=== PATIENT | male | born 1960 | race Caucasian/White ===

== ENCOUNTER 2016-08-03 06:04 | Inpatient (IN) | payer OTHER ==
[~2016-08-03] VITALS: Ht 188 cm; Wt 113.4 kg
[~2016-08-03 06:04] MED LIST: ALBUTEROL0.09 MG/A2 INH; ASPIRIN EC81 M1 PO; ATORVASTATIN CA10 M1 PO; CRESTOR40 M2 PO; CRESTOR40 MG PO; LEVEMIR FL100 UNIT/1 SC; LEVEMIR100 UNIT/1 SC; LEVOTHYROXINE175 MCG PO; LEVOXYL75 MCG PO; METFORMIN HCL1000 M1 PO; METFORMIN HCL500 M3 PO; NORCO 325 MG-51 TAB PO; NOVOLOG100 UNIT/2 SC; PROAIR HFA0.09 MG/Ac INH; Q-TUSSIN DM SY473 ML PO; TESTOSTERO200 MG/1 M IM; TRAMADOL HCL50 MG PO; TRESIBA FL200 UNIT/1 SC; TRULICITY0.75 MG/01 SC; VITAMIN D1000 UNIT PO; ZITHROMAX Z-PA250 M1 PO
--- NOTE | 2016-08-03 06:19 | NUR ---
c/o difficulty breathing,chest pain,cotton mouth elevated bs decreased appetite,fever and chills
--- NOTE | 2016-08-03 06:28 | NUR ---
PT FINGER-STICK= 146
--- NOTE | 2016-08-03 06:58 | ED GENERAL ADULT ---
History of Present Illness General Chief Complaint: General Adult Stated Complaint: MULTI COMPLAINTS Source: patient Exam Limitations: no limitations Vital Signs & Intake/Output Vital Signs & Intake/Output Vital Signs Date Time Temp Pulse Resp B/P B/P Pulse O2 O2 Flow FiO2 Mean Ox Delivery Rate 08/03 1145 99.6 109 18 117/72 93 Room Air 08/03 0620 96.5 130 18 138/73 95 Room Air Allergies Coded Allergies: NO KNOWN ALLERGIES (08/12/13) Reconcile Medications Albuterol Sulfate (Proair Hfa) 0.09 MG/Actuation KENDALL 0.09 MG INH PRN PRN ASTHMA (Reported) Aspirin (Ecotrin*) 81 MG TABLET.DR 1 TAB PO DAILY HEART/BLOOD (Reported) Cholecalciferol (Vitamin D3) (Vitamin D) (Unknown Strength) TABLET (Unknown Dose) PO BID SUPPLEMENT (Reported) Dulaglutide (Trulicity) (Unknown Strength) PEN.INJCTR (Unknown Dose) SC QSAT DM (Reported) Guaifenesin/Dextromethorphan (Q-Tussin Dm Syrup) 100 MG-10 MG/5 ML SYRUP 10 ML PO BID COUGH AND CONGESTION (Reported) Insulin Detemir (Levemir Flextouch) 100 UNIT/ML (3 ML) INSULN.PEN 40 UNITS SC QAM DM (Reported) Levothyroxine Sodium 175 MCG TABLET 1 TAB PO DAILY THYROID (Reported) Metformin HCl 1,000 MG TABLET 1 TAB PO 0800,1700 Diabetes Rosuvastatin Calcium (Crestor) 40 MG TABLET 1 TAB PO DAILY CHOLESTEROL ( Reported) Testosterone Cypionate (Unknown Strength) VIAL (Unknown Dose) IM Q2W HRT ( Reported) Triage Note: c/o difficulty breathing,chest pain,cotton mouth elevated bs decreased appetite,fever and chills Triage Nurses Notes Reviewed? yes Onset: Abrupt Duration: hour(s): Timing: recent history HPI: 08/03/16 7 am This is a 56-year-old man who presents to the emergency department complaining of fever or chills, cough that is nonproductive, sweats over the past 12 hours The onset of the symptoms were abrupt, the duration has been the past 12 hours, the severity is significant; as his symptoms required him to come to the emergency department for care. He has a past medical history of Klinefelter syndrome, osteoporosis, and diabetes. (WALLACE CRUZ DO) Past History Travel History Traveled to [place] past 21 day No Medical History Any Pertinent Medical History? 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 No (WALLACE CRUZ DO) Review of Systems Review of Systems Constitutional: Reports: chills, fever. EENTM: Reports: no symptoms, throat pain. Respiratory: Reports: cough. Denies: short of breath. Cardiovascular: Denies: chest pain. GI: Reports: nausea, vomiting. Denies: abdominal pain. Genitourinary: Reports: no symptoms. Musculoskeletal: Reports: no symptoms. Skin: Reports: no symptoms. Neurological/Psychological: Reports: no symptoms. Hematologic/Endocrine: Denies: bleeding. Immunologic/Allergic: Reports: no symptoms, see HPI. (WALLACE CRUZ DO) Physical Exam Physical Exam General Appearance: alert, awake, anxious, moderate distress Head: atraumatic, normal appearance Eyes: Bilateral: normal appearance, PERRL, EOMI. Ears, Nose, Throat: normal pharynx, normal ENT inspection Neck: normal inspection, supple, full range of motion Respiratory: chest non-tender, no respiratory distress, rhonchi Cardiovascular: tachycardia Peripheral Pulses: 4+ radial (R), 4+ radial (L) Gastrointestinal: soft, non-tender Back: normal range of motion Extremities: pedal edema Neurologic/Psych: no motor/sensory deficits, awake, alert, oriented x 3 Skin: intact, normal color, diaphoresis Core Measures ACS in differential dx? No CVA/TIA Diagnosis: No Severe Sepsis Present: No Septic Shock Present: No (WALLACE CRUZ DO) Progress Differential Diagnoses I considered the following diagnoses in my evaluation of the patient: [Sepsis, pneumonia bronchitis, influenza, viral syndrome] Plan of Care: Orders Procedure Date/time Status LACTIC ACID 08/03 1512 Active Admit to inpatient 08/03 1303 Active Admit to inpatient 08/03 1247 Active Patient Data 08/03 1220 Active HIGH SENSITIVITY CRP 08/03 1214 Active WESTERGREN SED RATE 08/03 1214 Active Add-on Test (ER Only) 08/03 1213 Active LACTIC ACID 08/03 1212 Active URINALYSIS 08/03 1211 Complete Add-on Test (ER Only) 08/03 121 Active THYROID STIMULATING HORMONE 08/03 0705 Active LIPASE 08/03 0705 Active RAPID VIRAL INFLUENZA A 08/03 07 Complete BLOOD CULTURE 08/03 07 Active COMPREHENSIVE METABOLIC PANEL 08/03 07 Active CBC WITHOUT DIFFERENTIAL 08/03 07 Complete EKG 08/03 0632 Active Current Medications Sig/Hedy Start time Last Medication Dose Stop Time Status Admin Sodium Chloride 1,000 ML BOLUS ONE 08/03 1215 AC (Normal Saline 0.9%) 08/03 1314 Laboratory Tests 08/03/16 1235: Lactic Acid Pending 08/03/16 1235: C-React Prot High Sens Pending, ESR Westergren Pending 08/03/16 1231: Urinalysis MOD H, Urine Color ARIK, Urine Clarity HAZY H, Urine pH 6.0, Ur Specific [place] 1.025, Urine Protein 100 H, Urine Ketones TRACE H, Urine Nitrite NEG, Urine Bilirubin POS@ICTO H, Urine Urobilinogen 1.0, Ur Leukocyte Esterase NEG, Ur Microscopic SEDIMENT EXAMINED, Urine RBC RARE, Urine WBC RARE, Ur Epithelial Cells FEW, Granular Casts 1-3 H, Urine Hemoglobin SMALL H, Urine Glucose NEG 08/03/16 0705: Anion Gap 13, Estimated GFR 57 L, BUN/Creatinine Ratio 17.7, Glucose 145 H, Calcium 8.4, Total Bilirubin 1.5 H, AST 105 H, ALT 91 H, Alkaline Phosphatase 70, Total Protein 6.7, Albumin 3.8, Globulin 2.9, Albumin/Globulin Ratio 1.3, Lipase 74, TSH Pending, CBC w Diff MAN DIFF ORDERED, RBC 5.75, MCV 77.4 L, MCH 25.6 L, RDW 17.1 H, MPV 11.2 H, Gran % 65.4, Lymphocytes % 27.6, Monocytes % 6.5, Eosinophils % 0.1, Basophils % 0.4, Absolute Granulocytes 1.7, Segmented Neutrophils 32 L, Band Neutrophils 32 H, Absolute Lymphocytes 0.7 L, Lymphocytes 31, Monocytes 5, Absolute Monocytes 0.2, Absolute Eosinophils 0, Absolute Basophils 0, Platelet Estimate , Poikilocytosis 1+, Anisocytosis 1+, Ovalocytes , PUBS MCHC 33.1 Microbiology 08/03 1002 NASOPHARYN: Influenza Virus A & B Rapid Smear - COMP 08/03 0710 BLOOD: Blood Culture - RECD 08/03 07 BLOOD: Blood Culture - RECD Initial ED EKG: none (WALLACE CRUZ DO) Diagnostic Imaging: Discussed w/RAD: Radiology Read, CT Scan. Radiology Impression: PATIENT: EDU MERCHANT PRESENT AGE: 56 PATIENT ACCOUNT NO: [id number] : 56 LOCATION: [facility] ORDERING PHYSICIAN: WALLACE ATKINS MD SERVICE DATE: 08/03/16 EXAM TYPE: CAT - CT ABD & PELVIS W/O IV CONTRAS EXAMINATION: CT ABDOMEN AND PELVIS WITHOUT CONTRAST CLINICAL INFORMATION: Chills, bandemia and elevated liver enzymes. COMPARISON: CT abdomen and pelvis from 01/27/2010 TECHNIQUE: Multidetector volumetric imaging was performed from the superior aspect of the liver through the pubic symphysis. Sagittal and coronal reformatted images were obtained on the technologist's workstation. DLP: 1337 mGy-cm FINDINGS: LUNG BASES: The visualized lung bases are unremarkable. LIVER, GALLBLADDER, AND BILIARY TREE: Liver has an attenuation of approximately 40 Hounsfield units (borderline steatosis). The right hepatic lobe is approximately 19 cm in length and the left hepatic lobe is elongated, extending into the left upper quadrant and contacting the spleen. No focal hepatic lesion or intrahepatic bile duct dilatation. Gallbladder is surgically absent. PANCREAS: Unremarkable. SPLEEN: The prominent spleen measures 16.3 cm AP dimension. No focal splenic lesion. ADRENAL GLANDS: Unremarkable. KIDNEYS AND URETERS: Kidneys are normal in size. No nephrolithiasis, hydroureteronephrosis or perinephric fluid collection. BLADDER: Unremarkable. GASTROINTESTINAL TRACT: Bowel loops are normal in caliber. Appendix is normal. No evidence of acute inflammation or obstruction along the gastrointestinal tract. ABDOMINAL WALL: Obese body habitus. Minimal protrusion of fat into the umbilicus. No significant findings within the abdominal wall. LYMPH NODES: No pathologic sized lymph nodes within the abdomen or pelvis. VASCULAR: Mild atherosclerotic calcification of the abdominal aorta without aneurysm. No retroperitoneal mass or hematoma. PELVIC VISCERA: Prostate gland and seminal vesicles are grossly unremarkable. No pelvic free fluid. A few phleboliths are seen in the lower pelvis. OSSEOUS STRUCTURES: No suspicious osseous lesions. IMPRESSION: 1. No acute imaging abnormalities within the abdomen or pelvis. 2. Mild hepatosplenomegaly is observed in this obese patient. There are no focal hepatic or splenic lesions on this noncontrast exam. Liver has an attenuation of approximally 40 Hounsfield units (i.e., borderline steatosis). 3. Status post cholecystectomy. DICTATED BY: ANAY ARELLANO MD DATE /TIME DICTATED:08/03/161134 CASE LINER:JUAN DATE/TIME TRANSCRIBED: 08/03/161134 CONFIDENTIAL, DO NOT COPY WITHOUT APPROPRIATE AUTHORIZATION. < Electronically signed in Other Vendor System> SIGNED BY: ANAY ARELLANO MD 08/03/16 1145 CXR Impression: PATIENT: EDU MERCHANT PRESENT AGE: 56 PATIENT ACCOUNT NO: [id number] : 56 LOCATION: [facility] ORDERING PHYSICIAN: WALLACE ATKINS MD SERVICE DATE: 08/03/16 EXAM TYPE: RAD - XRY-PORTABLE CHEST XRAY EXAMINATION: XR PORTABLE CHEST CLINICAL INFORMATION: Cough and chills. Evaluate for pneumonia. COMPARISON: 02/21/2016 TECHNIQUE: Portable AP view of the chest was obtained. FINDINGS: Lungs are well expanded and clear. The trachea is midline position. Cardiac silhouette is normal in size. The mediastinal and hilar contours are normal. There is an old, healed fracture of the right posterolateral eighth rib. IMPRESSION: No evidence of pneumonia. DICTATED BY: ANAY ARELLANO MD DATE/TIME DICTATED:08/03/161107 CASE LINER:JUAN DATE/TIME TRANSCRIBED:08/03/161107 CONFIDENTIAL, DO NOT COPY WITHOUT APPROPRIATE AUTHORIZATION. 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 08/03/2016 12:15:45 PM patient's case discussed with Dr. Ivan and additional studies added at his request. The patient has no clinical focus of infection at this time so I do not believe he is septic. However he does meet criteria for systemic inflammatory response. Patient will be admitted. (MILLY AL,WALLACE Rodriguez) Departure Departure Disposition: STILL A PATIENT Condition: Stable Referrals: JOSE AGRAWAL MD (PCP/Family) Departure Forms: Customer Survey General Discharge Information (WALLACE CRUZ DO) Departure Clinical Impression Primary Impression: Systemic inflammatory response syndrome Secondary Impressions: Hepatomegaly Leukopenia Qualifiers: Leukopenia type: other Qualified Code: D72.818 - Other decreased white blood cell count Thrombocytopenia Total bilirubin, elevated Admission Note Spoke With: LYNN AL,ALYSSA Amor Documentation of Exam: Documentation of any treatments & extenuating circumstances including Concerns Regarding Discharge (functional status, medication knowledge or non-compliance, living conditions, etc.) that warrant an admission rather than observation: Patient has leukopenia, thrombocytopenia and hepatomegaly along with a systemic inflammatory response syndrome. The etiology of this patient's symptoms is unclear at this point. His leukopenia places him at risk of overwhelming infection and sepsis. His thrombocytopenia places him at elevated risk of spontaneous bleeding. Given the systemic inflammatory response syndrome, an occult infectious process or autoimmune disorder should be investigated. Hematology oncology consultation should be considered. Patient's white blood cell count and platelet count should be monitored and treated accordingly. Blood cultures should be followed and treated as well. Given the multitude of the patient's medical problems and his history of hypothyroidism and Klinefelter 's disease, I feel he will require a multiple day hospitalization. (MILLY AL,WALLACE Rodriguez) Critical Care Note Critical Care Note Critical Care Time: non-applicable (WALLACE CRUZ DO)
[2016-08-03 07:33] LABS: ABSOLUTE BASOPHIL COUNT 0 /CUMM (0.0-0.2); ABSOLUTE EOSINOPHIL COUNT 0 /CUMM (0.0-0.7); ABSOLUTE GRANULOCYTE CT 1.7 /CUMM (1.4-6.5); ABSOLUTE LYMPH COUNT 0.7 /CUMM (1.2-3.4); ABSOLUTE MONOCYTE COUNT 0.2 /CUMM (0.10-0.60); HEMATOCRIT 44.5 % (42-52); MEAN CORPUSCULAR HGB 25.6 PG (27.0-31.0)
[2016-08-03 07:36] LABS: BASOPHIL % 0.4 % (0.0-2.0); EOSINOPHIL % 0.1 % (0-5); GRANULOCYTE % 65.4 % (42.2-75.2); MEAN CORPUSCULAR HGB CONC 33.1 G/DL (33.0-37.0); MEAN CORPUSCULAR VOLUME 77.4 FL (80.0-94.0); MEAN PLATELET VOLUME 11.2 FL (7.4-10.4); RBC DISTRIBUTION WIDTH 17.1 % (11.5-14.5); RED BLOOD CELL CT 5.75 /CUMM (4.70-6.10); WHITE BLOOD CELL COUNT 2.7 /CUMM (4.8-10.8)
[2016-08-03 07:51] LABS: PLATELET COUNT 28 /CUMM (130-400)
--- NOTE | 2016-08-03 07:51 | NUR ---
CRITICAL TEST RESULTS [id number] EDU MERCHANT 56 M TESTS AND RESULTS: PLTS 28 Results received and read back by: MORGAN FRANCOIS Results received date and time: 08/03/16 0751 The following provider was notified of the results, and read the results back: DR ATKINS Notified date and time: 08/03/16 at 0751
--- NOTE | 2016-08-03 10:06 | NUR ---
FLU SWAB OBTAINED AND SENT TO LAB
--- NOTE | 2016-08-03 10:40 | NUR ---
DR ATKINS IN TO [facility] PT.
--- NOTE | 2016-08-03 11:13 | RADIOLOGY REPORT ---
EXAMINATION: XR PORTABLE CHEST CLINICAL INFORMATION: Cough and chills. Evaluate for pneumonia. COMPARISON: 02/21/2016 TECHNIQUE: Portable AP view of the chest was obtained. FINDINGS: Lungs are well expanded and clear. The trachea is midline position. Cardiac silhouette is normal in size. The mediastinal and hilar contours are normal. There is an old, healed fracture of the right posterolateral eighth rib. IMPRESSION: No evidence of pneumonia.
--- NOTE | 2016-08-03 11:45 | CT SCAN REPORT ---
EXAMINATION: CT ABDOMEN AND PELVIS WITHOUT CONTRAST CLINICAL INFORMATION: Chills, bandemia and elevated liver enzymes. COMPARISON: CT abdomen and pelvis from 01/27/2010 TECHNIQUE: Multidetector volumetric imaging was performed from the superior aspect of the liver through the pubic symphysis. Sagittal and coronal reformatted images were obtained on the technologist's workstation. DLP: 1337 mGy-cm FINDINGS: LUNG BASES: The visualized lung bases are unremarkable. LIVER, GALLBLADDER, AND BILIARY TREE: Liver has an attenuation of approximately 40 Hounsfield units (borderline steatosis). The right hepatic lobe is approximately 19 cm in length and the left hepatic lobe is elongated, extending into the left upper quadrant and contacting the spleen. No focal hepatic lesion or intrahepatic bile duct dilatation. Gallbladder is surgically absent. PANCREAS: Unremarkable. SPLEEN: The prominent spleen measures 16.3 cm AP dimension. No focal splenic lesion. ADRENAL GLANDS: Unremarkable. KIDNEYS AND URETERS: Kidneys are normal in size. No nephrolithiasis, hydroureteronephrosis or perinephric fluid collection. BLADDER: Unremarkable. GASTROINTESTINAL TRACT: Bowel loops are normal in caliber. Appendix is normal. No evidence of acute inflammation or obstruction along the gastrointestinal tract. ABDOMINAL WALL: Obese body habitus. Minimal protrusion of fat into the umbilicus. No significant findings within the abdominal wall. LYMPH NODES: No pathologic sized lymph nodes within the abdomen or pelvis. VASCULAR: Mild atherosclerotic calcification of the abdominal aorta without aneurysm. No retroperitoneal mass or hematoma. PELVIC VISCERA: Prostate gland and seminal vesicles are grossly unremarkable. No pelvic free fluid. A few phleboliths are seen in the lower pelvis. OSSEOUS STRUCTURES: No suspicious osseous lesions. IMPRESSION: 1. No acute imaging abnormalities within the abdomen or pelvis. 2. Mild hepatosplenomegaly is observed in this obese patient. There are no focal hepatic or splenic lesions on this noncontrast exam. Liver has an attenuation of approximally 40 Hounsfield units (i.e., borderline steatosis). 3. Status post cholecystectomy.
--- NOTE | 2016-08-03 13:12 | History & Physical ---
See Addendum General Information and HPI MD Statement: I have seen and personally examined EDU MERCHANT and documented this H&P. The patient is a 56 year old M who presented with a patient stated chief complaint of []. History of Present Illness: Edu is a 48-year-old man with medical history significant for hypothyroidism, Klinefelter's syndrome syndrome and type 2 diabetes who reports feeling "sick" for approximately 1 week with complaints of nausea vomiting (nonbloody nonbilious) and one episode of diarrhea that was also nonbloody or unusually foul-smelling. He reports no sick contacts no travel history or camping history. He also began experiencing subjective chills and fevers at night along with hot flashes. He also endorses recent new symptom of right buttock tremor though denies any history of diabetic neuropathy. He denies myalgias or arthralgias no rashes risk sexual behaviors and/or multiple sexual partners IV drug abuse any history of malignancy chemotherapy or any other autoimmune problems. He denies any other symptoms after review in detail-exceptions noted above. Allergies/Medications Allergies: Coded Allergies: NO KNOWN ALLERGIES (08/12/13) Home Med list Aspirin (Ecotrin*) 81 MG TABLET.DR 1 TAB PO DAILY HEART/BLOOD (Reported) Cholecalciferol (Vitamin D3) (Vitamin D) (Unknown Strength) TABLET (Unknown Dose) PO BID SUPPLEMENT (Reported) Dulaglutide (Trulicity) (Unknown Strength) PEN.INJCTR (Unknown Dose) SC QSAT DM (Reported) Insulin Detemir (Levemir Flextouch) 100 UNIT/ML (3 ML) INSULN.PEN 6 UNITS SC QAM DM (Reported) Levothyroxine Sodium 175 MCG TABLET 1 TAB PO DAILY THYROID (Reported) Metformin HCl 1,000 MG TABLET 1 TAB PO 0800,1700 Diabetes Rosuvastatin Calcium (Crestor) 40 MG TABLET 1 TAB PO DAILY CHOLESTEROL ( Reported) Testosterone Cypionate (Unknown Strength) VIAL (Unknown Dose) IM Q2W HRT ( Reported) Compliance With Home Meds: GOOD Past History Travel History Traveled to [place] past 21 day No Medical History Neurological: NONE EENT: NONE Cardiovascular: NONE Respiratory: NONE Gastrointestinal: NONE Hepatic: NONE Renal: NONE Musculoskeletal: KLINEFELTER'S SYNDROME OA Psychiatric: NONE Endocrine: diabetes, hypothyroidism Blood Disorders: NONE Cancer(s): NONE MOTEL MAID/Reproductive: NONE History of MRSA: No History of VRE: No History of CDIFF: No Surgical History Surgical History: cholecystectomy, B/L KNEE Past Family/Social History Family History Relations & Conditions if any BROTHER FHx: lung cancer MOTHER FHx: lung cancer, Onset: 30-40. FATHER FH: tuberculosis Relation not specified for: FH: breast cancer Psychosocial History Where do you live? Home Who Do You Live With? spouse Services at Home: None Primary Language: Ivorian Smoking Status: Never Smoked ETOH Use: occasional use Illicit Drug Use: denies illicit drug use Functional Ability ADLs Independent: dressing, eating, toileting, bathing. Ambulation: independent IADLs Independent: shopping, housework, finances, food prep, telephone, transportation , medication admin. Sexual History Sexually Active Yes # of partners 1 Sexual Orientation Heterosexual Use of Protection No Employment History Employment Employed Review of Systems Review of Systems Constitutional: Reports: chills, diaphoresis, fever, weakness. All Other Systems: Reviewed and Negative Exam & Diagnostic Data Last 24 Hrs of Vital Signs/I&O Vital Signs Date Time Temp Pulse Resp B/P B/P Pulse O2 O2 Flow FiO2 Mean Ox Delivery Rate 08/03 1145 99.6 109 18 117/72 93 Room Air 08/03 0620 96.5 130 18 138/73 95 Room Air Intake & Output 08/03 1600 08/03 0800 08/03 0000 Intake Total 0 Output Total Balance 0 Intake, Oral 0 Patient 250 lb Weight Physical Exam General Appearance Alert, Oriented X3, Cooperative, No Acute Distress, obese Skin No Rashes, No Breakdown, No Significant Lesion Skin Temp/Moisture Exam: Warm/Dry Sepsis Skin Exam (color): Normal for Ethnicity HEENT Atraumatic, PERRLA, EOMI, Mucous Membr. moist/pink, edentulous Neck Supple, No JVD, No thryomegaly, +2 Carotid Pulse wo Bruit, No LAD Lymphatic Axillary nl, Cervical nl Cardiovascular Regular Rate, Normal S1, Normal S2, No Murmurs, Gallops, Rubs Lungs Clear to Auscultation, Normal Air Movement Abdomen Normal Bowel Sounds, Soft, No Tenderness, No Hepatospenomegaly, No Masses, obese abdomen Neurological Normal Speech, Strength at 5/5 X4 Ext, Normal Tone, Sensation Intact, Cranial Nerves 3-12 NL, Reflexes 2+ Extremities No Clubbing, No Cyanosis, No Edema, Normal Pulses, No Tenderness/ Swelling Vascular Normal Pulses, Pulses Symmetrical Sepsis Peripheral Pulse Location: Dorsalis Pedis Sepsis Peripheral Pulse Exam: Normal Sepsis Cap Refill Exam: <2 Sec Diagnostic Data EKG Results sinus tachycardia CXR Results FINDINGS: Lungs are well expanded and clear. The trachea is midline position. Cardiac silhouette is normal in size. The mediastinal and hilar contours are normal. There is an old, healed fracture of the right posterolateral eighth rib. IMPRESSION: No evidence of pneumonia. Other Results CT ABDOMEN AND PELVIS WITHOUT CONTRAST CLINICAL INFORMATION: Chills, bandemia and elevated liver enzymes. COMPARISON: CT abdomen and pelvis from 01/27/2010 TECHNIQUE: Multidetector volumetric imaging was performed from the superior aspect of the liver through the pubic symphysis. Sagittal and coronal reformatted images were obtained on the technologist's workstation. DLP: 1337 mGy-cm FINDINGS: LUNG BASES: The visualized lung bases are unremarkable. LIVER, GALLBLADDER, AND BILIARY TREE: Liver has an attenuation of approximately 40 Hounsfield units (borderline steatosis). The right hepatic lobe is approximately 19 cm in length and the left hepatic lobe is elongated, extending into the left upper quadrant and contacting the spleen. No focal hepatic lesion or intrahepatic bile duct dilatation. Gallbladder is surgically absent. PANCREAS: Unremarkable. SPLEEN: The prominent spleen measures 16.3 cm AP dimension. No focal splenic lesion. ADRENAL GLANDS: Unremarkable. KIDNEYS AND URETERS: Kidneys are normal in size. No nephrolithiasis, hydroureteronephrosis or perinephric fluid collection. BLADDER: Unremarkable. GASTROINTESTINAL TRACT: Bowel loops are normal in caliber. Appendix is normal. No evidence of acute inflammation or obstruction along the gastrointestinal tract. ABDOMINAL WALL: Obese body habitus. Minimal protrusion of fat into the umbilicus. No significant findings within the abdominal wall. LYMPH NODES: No pathologic sized lymph nodes within the abdomen or pelvis. VASCULAR: Mild atherosclerotic calcification of the abdominal aorta without aneurysm. No retroperitoneal mass or hematoma. PELVIC VISCERA: Prostate gland and seminal vesicles are grossly unremarkable. No pelvic free fluid. A few phleboliths are seen in the lower pelvis. OSSEOUS STRUCTURES: No suspicious osseous lesions. IMPRESSION: 1. No acute imaging abnormalities within the abdomen or pelvis. 2. Mild hepatosplenomegaly is observed in this obese patient. There are no focal hepatic or splenic lesions on this noncontrast exam. Liver has an attenuation of approximally 40 Hounsfield units (i.e., borderline steatosis). 3. Status post cholecystectomy. Assessment/Plan Assessment: Edu is a 48-year-old man with a medical history of hypothyroidism, type 2 diabetes, remote history of DVT not on anticoagulation, obesity, hospitalization at [facility] 12/11/2015 for hyperglycemic hyperosmolar state, electrolyte derangements (hyponatremia, hyperkalemia)and significant hypertriglyceridemia who now presents with general malaise/subjective fevers and chills, significant nonproductive cough. His recent illness, as described by the patient, appears to be a viral gastroenteritis. However significant lab abnormalities are worrisome, he is leukopenic with a WBC count of 2700, borderline neutropenia with an absolute neutrophil count of 1728. He does have significant thrombocytopenia with platelets of 20,000. Significant bandemia 32%. Nonspecific transaminitis with AST greater than ALT. As of yet we do not have a clear source of infection, imaging including chest x-ray and CAT scan of the abdomen and pelvis have not yielded an obvious source of infection. Thus far he has remained afebrile, but his ability to mount a pyrexia response is questionable. The patient himself denies any other medical history, however reviewing his medical records it appears that he had underwent flow cytometry at [facility] in 2013 - which the patient is unaware of. Flow cytometry did not detect any blasts or evidence of monoclonal B-cell lymphoproliferative disease. He has never had a bone marrow bx. Also of note, he notes his father had TB exposure and he had a negative Quantiferon test in October 2013. This patient meets SIRS criteria. Differential should include transient myelosuppression 2/2 viral illness, myeloproliferative neoplasm e.g. MDS etc., low grade DIC, tick borne illnesses e.g. anaplasmosis. MPNs occur more often in people with Down syndrome, Ataxia telangiectasia, Li-Fraumeni syndrome, Klinefelter syndrome, and Familial Platelet Disorder syndrome et al. Hematology consultation would be prudent, along with a review of records from PCP and [facility]. - Problems - Leukopenia Thrombocytopenia Transaminitis Type 2 Diabetes - Plan - Obtain Type & screen PT/INR, D-Dimer,FSP,Fibrinogen level ESR, CRP Peripheral blood smear HIV ab Hepatitis panel Lyme,Babesia,Ehrlichia serologies Repeat CBC @ 1900h Repeat CBC, CMP @ 0600h Await Blood Cx x 2 Urine Cx Sputum culture Anticipate pooled platelets txn, if plt<10 Await Hematology consultation Consider ID consultation re:?tick borne illness, ?TB Neutropenic precautions for now until ANC is trending up Cont supportive tx - antiemetics, IVFs DVT ppx ALPs FULL code As Ranked By This Provider Problem List: 1. Thrombocytopenia 2. Leukopenia Qualifiers Leukopenia type: other Qualified Code: D72.818 - Other decreased white blood cell count Core Measures/Miscellaneous Acute Coronary Syndrome ACS Diagnosis: No Cerebrovascular Accident CVA/TIA Diagnosis: No Congestive Heart Failure CHF Diagnosis: No Venous Thromboembolism VTE Risk Factors: Age > 40 [facility] d/t: No contraindications No VTE Pharm Prophylaxis d/t: No contraindications VTE Diagnosis: No VTE Type: NONE VTE Confirmed by (Test): NONE Severe Sepsis Severe Sepsis Present: No Septic Shock Septic Shock Present: No Miscellaneous Documentation Attending Case Discussed With: ALYSSA BAILEY MD Primary Care Physician: JOSE AGRAWAL MD Patient sees these Specialists n/a Level of Patient Care: General Medicine n/a Level of Patient Care: General Medicine
--- NOTE | 2016-08-03 13:54 | NUR ---
PT TO ROOM 212 BED 1
--- NOTE | 2016-08-03 14:32 | NUR ---
REPORT TO JAYA LEAL.
--- NOTE | 2016-08-03 14:57 | NUR ---
AWAITING TO HEAR IF PT WILL HAVE CTA PRIOR TO FLOOR TRANSPORT.
--- NOTE | 2016-08-03 15:10 | NUR ---
LABS DRAWN, SENT TO LAB.
[2016-08-03 15:17] LABS: PT 11.5 SEC (9.4-12.5); PTT 35 SEC (25-37)
--- NOTE | 2016-08-03 15:35 | NUR ---
PER RESIDENT, ADDITIONAL LABWORK REQUIRED AT THIS TIME.
--- NOTE | 2016-08-03 15:45 | NUR ---
PER LAB, THE STAT LABWORK STILL REMAINS UNRECEIVED. THE FSP TUBE IS A SPECIAL TUBE FROM THE LAB THAT IS REQUIRED TO WARM TO ROOM TEMP X15 MINUTES PRIOR TO BEING DRAWN.
--- NOTE | 2016-08-03 16:34 | NUR ---
CONTINUE TO AWAIT LAB RESULTS.
--- NOTE | 2016-08-03 16:49 | Admission Certification ---
Admission Certification Certification Statement - As attending physician, I certify that at the time of - admission, based on clinical presentation, severity of - symptoms, need for further diagnostic testing and - therapeutic interventions, and risk of adverse outcomes - without in-hospital treatment, in my clinical assessment, - this patient requires an acute hospital stay for a minimum - of two nights or longer. I have also considered psychsocial - factors such as support system, advanced age, financial - issues, cognitive issues, and failed out-patient treatments, - past re-admission history, safety of patient, and lack of - compliance as applicable. Specific rationale supporting this admission is: Fever and chills with leukopenia and thrombocytopenia, elevated LFTs.
--- NOTE | 2016-08-03 16:50 | NUR ---
DEVI AND FAMILY AWARE OF DELAY AT THIS TIME. CONTINUE TO AWAIT HOUSE STAFF PERMISSION TO ALLOW PATIENT TO BE MOVED TO GENERAL MEDICINE FLOOR AT THIS TIME.
--- NOTE | 2016-08-03 17:02 | NUR ---
TRANSPORT CALLED AT THIS TIME.
[2016-08-03 17:08] LABS: ABSOLUTE BASOPHIL COUNT 0 /CUMM (0.0-0.2); ABSOLUTE EOSINOPHIL COUNT 0 /CUMM (0.0-0.7); ABSOLUTE GRANULOCYTE CT 1.7 /CUMM (1.4-6.5); ABSOLUTE LYMPH COUNT 0.9 /CUMM (1.2-3.4); ABSOLUTE MONOCYTE COUNT 0.2 /CUMM (0.10-0.60); BASOPHIL % 0.1 % (0.0-2.0); EOSINOPHIL % 0 % (0-5); MEAN CORPUSCULAR HGB 25.7 PG (27.0-31.0); MEAN PLATELET VOLUME 11.3 FL (7.4-10.4); RBC DISTRIBUTION WIDTH 17.4 % (11.5-14.5); RED BLOOD CELL CT 5.05 /CUMM (4.70-6.10); WHITE BLOOD CELL COUNT 2.8 /CUMM (4.8-10.8)
--- NOTE | 2016-08-03 17:11 | PN- Att Addend ---
Attending MD Review Statement Attending Statement Attending MD Statement: examined this patient, discuss w/resident/PA/CITRIX ARCHITECT, agreed w/resident/PA/CITRIX ARCHITECT, discussed with family, reviewed EMR data (avail), discussed w/ nursing Attending Assessment/Plan: Laboratory Tests 08/03/16 1559: Sodium Pending, Potassium Pending, Chloride Pending, Carbon Dioxide Pending, Anion Gap Pending, BUN Pending, Creatinine Pending, BUN/Creatinine Ratio Pending , Fibrin Degrad Products Pending, CBC w Diff Pending, WBC Pending, RBC Pending, Hgb Pending, Hct Pending, MCV Pending, MCH Pending, RDW Pending, Plt Count Pending, MPV Pending, PUBS MCHC Pending 08/03/16 1508: Lactic Acid 1.0 08/03/16 1235: Lactic Acid 1.0 08/03/16 1235: Direct Bilirubin 0.5 H, C-Reactive Prot, Quant > 9.0 H, C-React Prot High Sens > 15.0 H, ESR Westergren 5 08/03/16 1231: Urinalysis MOD H, Urine Color ARIK, Urine Clarity HAZY H, Urine pH 6.0, Ur Specific Paxton 1.025, Urine Protein 100 H, Urine Ketones TRACE H, Urine Nitrite NEG, Urine Bilirubin POS@ICTO H, Urine Urobilinogen 1.0, Ur Leukocyte Esterase NEG, Ur Microscopic SEDIMENT EXAMINED, Urine RBC RARE, Urine WBC RARE, Ur Epithelial Cells FEW, Granular Casts 1-3 H, Urine Hemoglobin SMALL H, Urine Glucose NEG 08/03/16 0705: Anion Gap 13, Estimated GFR 57 L, BUN/Creatinine Ratio 17.7, Glucose 145 H, Calcium 8.4, Total Bilirubin 1.5 H, AST 105 H, ALT 91 H, Alkaline Phosphatase 70, Lactate Dehydrogenase 2073 H, Total Protein 6.7, Albumin 3.8, Globulin 2.9, Albumin/Globulin Ratio 1.3, Lipase 74, TSH 0.259 L, CBC w Diff MAN DIFF ORDERED , RBC 5.75, MCV 77.4 L, MCH 25.6 L, RDW 17.1 H, MPV 11.2 H, Gran % 65.4, Lymphocytes % 27.6, Monocytes % 6.5, Eosinophils % 0.1, Basophils % 0.4, Absolute Granulocytes 1.7, Segmented Neutrophils 32 L, Band Neutrophils 32 H, Absolute Lymphocytes 0.7 L, Lymphocytes 31, Monocytes 5, Absolute Monocytes 0.2 , Absolute Eosinophils 0, Absolute Basophils 0, Platelet Estimate , Poikilocytosis 1+, Anisocytosis 1+, Ovalocytes , PUBS MCHC 33.1, Retic Count 0.77, Hepatitis A IgM Ab NONREACTIVE, Hep Bs Antigen NONREACTIVE, Hep B Core IgM Ab Conf NONREACTIVE, Hepatitis C Antibody NONREACTIVE, HIV 1&2 Ab Western Blot NONREACTIVE 08/03/16 0704: PT 11.5, INR 1.10, APTT 35, Fibrinogen Activity 309, D-Dimer > 5250 H, Lyme Disease Antibody Pending Microbiology 08/03 1002 NASOPHARYN: Influenza Virus A & B Rapid Smear - COMP Vital Signs Date Time Temp Pulse Resp B/P B/P Pulse O2 O2 Flow FiO2 Mean Ox Delivery Rate 08/03 1429 97.8 100 18 115/68 94 08/03 1145 99.6 109 18 117/72 93 Room Air 08/03 0620 96.5 130 18 138/73 95 Room Air 56-year-old male with past medical history of Klinefelter syndrome, diabetes mellitus, hypothyroidism, remote history of clot in the leg. Patient was admitted with chief complaints of fever and chills along with the diaphoresis for the last 12 hours prior to admission. Patient also has been having symptoms of nausea and vomiting for about 1 week with left lower quadrant abdominal pain. Patient denies any sick contacts, no recent camping or exposure to ticks. Patient has history of cholecystectomy in the past but denies any history of appendicitis. Patient also had 1 episode of loose stools. Denies any recent change in the medications. Patient also complained of some tremors in in his right lower extremity which has been on and off for the last 2 weeks. In the emergency room patient was found to have a white count of 2.7 with bands of 32% and platelets of 28,000. Also his creatinine was higher than baseline at 1.3. Patient was given IV fluids in the ER about 2 L of normal saline. We have started him on normal saline also. His lactic acid is normal. His LDH is high as well as his CRP but his ESR is normal. His repeat creatinine after fluid is 1.4. We're waiting for his repeat CBCs. Acute leukopenia with bandemia and thrombocytopenia-unclear etiology as of now. Given his high LDH and mildly elevated LFTs and thrombocytopenia with leukopenia and CT abdomen showing mild hepatosplenomegaly we would consider tickborne illnesses like babesiosis and early ehrlichiosis. We reviewed the peripheral blood smear with the lab and they do not see any evidence of tickborne illness on the peripheral smear. We will send for serology and will give him azithromycin as well as atovaquone empirically and will get hematology consult. His d-dimer can be nonspecific. He does have had remote history of leg clot but currently his wells score is very low and also has no leg swelling which puts him at very low probability for DVT and PE. Given his high creatinine and very low platelets his risk of bleeding outweighs the benefit of empirically treating him with heparin drip. We will give him more hydration and repeat his labs in the morning and if his creatinine is better may consider doing a CT chest to look for other etiologies.
[2016-08-03 17:13] LABS: HEMATOCRIT 39.4 % (42-52)
[2016-08-03 17:14] LABS: PLATELET COUNT 31 /CUMM (130-400)
--- NOTE | 2016-08-03 17:14 | NUR ---
CRITICAL TEST RESULTS [id number] EDU MERCHANT 56 M TESTS AND RESULTS: FSP >40 Results received and read back by: ITZ DIAZ Results received date and time: 08/03/161713 The following provider was notified of the results, and read the results back: [id number] Notified date and time: 08/03/16 at HOUSE STAFF (BRYANT ALEXANDER) PAGED
--- NOTE | 2016-08-03 17:24 | NUR ---
NO CT-A NOTED TO BE ORDERED AT THIS TIME.
[2016-08-03 18:06] VITALS: BP 110/82
[2016-08-03 23:19] VITALS: BP 100/60
[2016-08-04 07:46] VITALS: BP 108/64
--- NOTE | 2016-08-04 08:16 | PN- Housestaff ---
BRYANT ALEXANDER MD 08/04/16 0815: Subjective Follow-up For: Pancytopenia Possible tick borne illness Subjective: Patient seen and examined. He is seen sitting upright in bed resting comfortably. He appears to be in no acute distress. His [id number] is at bedside present for the interview. He reports sleeping well last night, but admits to intermitted chills and a persistent new nonproductive cough. Otherwise he states that he feels "a bit better" than when he came in and has no new subjective complaints. Additionally he denies any blurred/double vision, lightheadedness/dizziness, headache, fever, chills, chest pain, palpitations, shortness of breath, nausea, vomiting, diarrhea. No overnight events reported. Review of Systems Constitutional: Reports: see HPI. Objective Last 24 Hrs of Vital Signs/I&O Vital Signs Date Time Temp Pulse Resp B/P B/P Pulse O2 O2 Flow FiO2 Mean Ox Delivery Rate 08/04 0800 93 Nasal 2.0L Cannula 08/04 0746 98.3 88 20 108/64 91 Nasal Cannula 08/04 0000 96 Nasal 2.0L Cannula 08/03 2319 98.7 86 20 100/60 95 Nasal 2.0L Cannula 08/03 1813 Nasal 2.0L Cannula 08/03 1806 98.6 99 19 110/82 97 Room Air 08/03 1730 97.5 97 18 133/70 95 Nasal 2.0L Cannula 08/03 1429 97.8 100 18 115/68 94 Intake & Output 08/04 1600 08/04 0800 08/04 0000 Intake Total 600 225 Output Total 450 250 Balance 150 -25 Intake, IV 600 225 Output, Urine 450 250 Patient 113.398 kg Weight Weight Reported by Patient Measurement Method Physical Exam General Appearance: Alert, Oriented X3, Cooperative, No Acute Distress Other Physical Findings: General - well developed, well nourished obese middle aged man in no acute distress HEENT - NCAT, PERRL, EOMI, anicteric sclera, nasal cannula in place CVS - S1, S2 w/o m/g/r Resp - CTA bilatearlly, audible nonproductive cough with deep inspiration GI - soft, obese, mild LUQ/LLQ tenderness without guarding/rigidity, nondistended, bowel sounds intact Neuro - Awake and alert, CN II - XII grossly intact Ext - normal pulses, no cyanosis/clubbing/edema Current Medications: Current Medications Sig/Hedy Start time Last Medication Dose Route Stop Time Status Admin Atovaquone 750 MG BID 08/03 220 AC PO Azithromycin 250 MG DAILY 08/04 1000 AC 08/04 PO 0954 Azithromycin 0 .STK-MED ONE 08/03 1736 DC PO Azithromycin 500 MG ONCE ONE 08/03 1730 DC 08/03 PO 08/03 1731 1740 Cyanocobalamin 1,000 MCG ONCE ONE 08/04 1245 DC IM 08/04 1246 Dextrose/Sodium 1,000 ML Q13H 08/03 1330 DC 08/04 [place] 0210 Guaifenesin 10 ML Q6P PRN 08/03 2200 AC 08/04 PO 0614 Insulin Aspart 0 TIDAC 08/04 1200 AC SC Insulin Detemir 3 UNITS BID 08/03 2200 AC 08/04 SC 0955 Insulin Human Regular 1 UNITS .STK-MED ONE 08/04 0036 DC IV 08/04 0037 Insulin Human Regular 0 Q6 08/03 1800 DC 08/04 SC 0614 Morphine Sulfate 2 MG Q4P PRN 08/03 1330 AC IV Ondansetron HCl 4 MG Q6P PRN 08/03 1330 AC IV Sodium Chloride 1,000 ML BOLUS ONE 08/03 1215 DC 08/03 IV 08/03 1314 1230 Last 24 Hrs of Lab/Ismael Results Last 24 Hrs of Labs/Mics: Laboratory Tests 08/04/16 0640: Anion Gap 10, Estimated GFR 52 L, BUN/Creatinine Ratio 17.1, Ferritin 6090.0 H , Total Bilirubin 1.1, Direct Bilirubin 0.5 H, AST 67 H, ALT 72, Alkaline Phosphatase 50, Total Protein 5.6 L, Albumin 2.9 L, Vitamin B12 216 L, CBC w Diff NO MAN DIFF REQ, RBC 4.84, MCV 77.8 L, MCH 25.7 L, RDW 17.5 H, MPV 13.3 H, Gran % 51.7, Lymphocytes % 40.6, Monocytes % 7.2, Eosinophils % 0.1, Basophils % 0.4, Absolute Granulocytes 1.6, Absolute Lymphocytes 1.3, Absolute Monocytes 0.2, Absolute Eosinophils 0, Absolute Basophils 0, PUBS MCHC 33.1 08/03/16 1900: CBC w Diff Cancelled, WBC Cancelled, RBC Cancelled, Hgb Cancelled, Hct Cancelled , MCV Cancelled, MCH Cancelled, RDW Cancelled, Plt Count Cancelled, MPV Cancelled, PUBS MCHC Cancelled 08/03/16 1559: Anion Gap 10, Estimated GFR 52 L, BUN/Creatinine Ratio 20.0, Fibrin Degrad Products > 40 ug/ml H, CBC w Diff NO MAN DIFF REQ, RBC 5.05, MCV 78.0 L, MCH 25.7 L, RDW 17.4 H, MPV 11.3 H, Gran % 61.0, Lymphocytes % 32.7, Monocytes % 6.2, Eosinophils % 0, Basophils % 0.1, Absolute Granulocytes 1.7, Absolute Lymphocytes 0.9 L, Absolute Monocytes 0.2, Absolute Eosinophils 0, Absolute Basophils 0, PUBS MCHC 33.0 08/03/16 1508: Lactic Acid 1.0, Lyme Disease Antibody Pending Microbiology 08/04 1351 LOWER RESP: Respiratory Culture - COLB 08/04 1351 LOWER RESP: Gram Stain - COLB Assessment/Plan Assessment: 56 year old man with past medical history of Klinefelters, hypothyroidism, and diabetes mellitus seen for evaluation of "feeling sick" with nausea/vomiting/ diarrhea and associated fever/chills for one week. Hospital Day 2 Patient reports improvement of his nausea/vomiting/diarrhea and subjective fever while on azithromycin and atovaquone. Infectious disease consult was placed and it was recommneded to keep patient on this regimen as his labs have demonstrated some improvement, he will be considered to be transitioned to oral doxycycline therapy pending results of anaplasma/babesia/lyme serologies. Heme/onc product/industry consultant commented that patients clinical picture most likely does not represent that of a microangiopathic hemolytic process and that there was a low suspicion for a primary hematologic malignancy but MDS is still a consideration. Patient is to be continued on the current regimen and monitored for interval improvement. Pancytopenia/Transaminitis/Acute Kidney Injury, Possible Tick borne illness -General Medicine -Azithromycin 250mg PO Daily -Atovaquone 750mg PO BID -Guaifenesin 10mL PO Q6H PRN Cough -Zofran 4mg IV Q6H PRN Nausea -Infectious Disease Consult -Heme/Onc Consult -Daily CBC/BEP Elevated LDH/D-Dimer Low modified well's score for PE. Patient does have have new nonproductive cough. -Consider CTA when creatinine improves -F/U Bilateral LE US B-12 Deficiency -B12 1,000mcg IM ONCE -B12 1,000mcg PO Daily Diabetes Mellitus -Accuchecks TIDAC/HS -Hold oral hypoglycemics -Novolog SSI -Levemir 3U SC BID -Diabetic Diet Pain plan-Acetaminophen/Oxycodone Diet-Diabetic Diet DVT PPx-ALPS Code Status-FULL CODE Problem List: 1. Thrombocytopenia Pain Ratin Pain Location: None Pain Goal: Pain 4 or less Pain Plan: See assessment Tomorrow's Labs & Rationales: CBC-pancytopenia BEP-acute kidney injury ALYSSA BAILEY 08/04/16 1725: Attending MD Review Statement Attending Statement Attending MD Statement: examined this patient, discuss w/resident/PA/REGISTERED DIETETIC TECHNICIAN, agreed w/resident/PA/REGISTERED DIETETIC TECHNICIAN, reviewed EMR data (avail), discussed with nursing Attending Assessment/Plan: Agree with the assessment plan of the resident. Patient's white count and platelets are stable and slightly better. Discussed with the patient the care plan. We will continue with current treatment plan. Appreciated hematology consult. We will follow-up on the tick panel and decide further course based on that.
[2016-08-04 09:10] LABS: ABSOLUTE BASOPHIL COUNT 0 /CUMM (0.0-0.2); ABSOLUTE EOSINOPHIL COUNT 0 /CUMM (0.0-0.7); ABSOLUTE GRANULOCYTE CT 1.6 /CUMM (1.4-6.5); ABSOLUTE LYMPH COUNT 1.3 /CUMM (1.2-3.4); ABSOLUTE MONOCYTE COUNT 0.2 /CUMM (0.10-0.60); BASOPHIL % 0.4 % (0.0-2.0); EOSINOPHIL % 0.1 % (0-5); RBC DISTRIBUTION WIDTH 17.5 % (11.5-14.5)
[2016-08-04 09:22] LABS: GRANULOCYTE % 51.7 % (42.2-75.2); HEMATOCRIT 37.7 % (42-52); MEAN CORPUSCULAR HGB 25.7 PG (27.0-31.0); MEAN CORPUSCULAR HGB CONC 33.1 G/DL (33.0-37.0); MEAN CORPUSCULAR VOLUME 77.8 FL (80.0-94.0); MEAN PLATELET VOLUME 13.3 FL (7.4-10.4); RED BLOOD CELL CT 4.84 /CUMM (4.70-6.10); WHITE BLOOD CELL COUNT 3.1 /CUMM (4.8-10.8)
[2016-08-04 10:04] LABS: PLATELET COUNT 36 /CUMM (130-400)
--- NOTE | 2016-08-04 12:36 | Cons- Hematology ---
General Information and HPI Consulting Request Date of Consult: 08/04/16 Requested By: LYNN AL,ALYSSA Amor Reason for Consult: Leukopenia, thrombocytopenia Source of Information: patient, old records Exam Limitations: no limitations History of Present Illness: Mr. Ridley is a 56 year old man who presented to the [facility] ER with complaints of nausea and vomiting with left lower abdominal pain for the last several days. His history is somewhat unclear but it appears he is also reporting diarrhea. It seems this is difficult to determine because he already has frequent loose stools per day. He reports hot and cold sweats and believes he had a fever but did not take his temporature. His cough has been productive of white sputum. He denies any dyspnea or chest pain. No headache, visual changes, dizziness or other focal neurologic symptoms. No rash, myalgia or arthralgia. Denies any abnormal bleeding or increased bruising. Appetite has been normal. He reports steady weight loss since being diagnosed with diabetes, over 100 lbs overall. No recent sudden weight loss. He current feels better and denies any nausea. Left lower abdominal pain has improved. Still noting loose stool. Allergies/Medications Allergies: Coded Allergies: NO KNOWN ALLERGIES (08/12/13) Home Med List: Aspirin (Ecotrin*) 81 MG TABLET.DR 1 TAB PO DAILY HEART/BLOOD (Reported) Cholecalciferol (Vitamin D3) (Vitamin D) (Unknown Strength) TABLET (Unknown Dose) PO BID SUPPLEMENT (Reported) Dulaglutide (Trulicity) (Unknown Strength) PEN.INJCTR (Unknown Dose) SC QSAT DM (Reported) Insulin Detemir (Levemir Flextouch) 100 UNIT/ML (3 ML) INSULN.PEN 6 UNITS SC QAM DM (Reported) Levothyroxine Sodium 175 MCG TABLET 1 TAB PO DAILY THYROID (Reported) Metformin HCl 1,000 MG TABLET 1 TAB PO 0800,1700 Diabetes Rosuvastatin Calcium (Crestor) 40 MG TABLET 1 TAB PO DAILY CHOLESTEROL ( Reported) Testosterone Cypionate (Unknown Strength) VIAL (Unknown Dose) IM Q2W HRT ( Reported) Current Medications: Current Medications Sig/Hedy Start time Last Medication Dose Route Stop Time Status Admin Atovaquone 750 MG BID 08/03 2200 AC PO Azithromycin 250 MG DAILY 08/04 1000 AC 08/04 PO 0954 Azithromycin 0 .STK-MED ONE 08/03 1736 DC PO Azithromycin 500 MG ONCE ONE 08/03 1730 DC 08/03 PO 08/03 1731 1740 Dextrose/Sodium 1,000 ML Q13H 08/03 1330 DC 08/04 Chloride IV 0210 Guaifenesin 10 ML Q6P PRN 08/03 2200 AC 08/04 PO 0614 Insulin Aspart 0 TIDAC 08/04 1200 AC SC Insulin Detemir 3 UNITS BID 08/03 2200 AC 08/04 SC 0955 Insulin Human Regular 1 UNITS .STK-MED ONE 08/04 0036 DC IV 08/04 0037 Insulin Human Regular 0 Q6 08/03 1800 DC 08/04 SC 0614 Morphine Sulfate 2 MG Q4P PRN 08/03 1330 AC IV Ondansetron HCl 4 MG Q6P PRN 08/03 1330 AC IV Sodium Chloride 1,000 ML BOLUS ONE 08/03 1215 DC 08/03 IV 08/03 1314 1230 Review of Systems Review of Systems Constitutional: Reports: chills, malaise. EENTM: Reports: no symptoms. Cardiovascular: Reports: no symptoms. Respiratory: Reports: cough, sputum production. GI: Reports: abdominal pain, diarrhea, nausea, vomiting. Denies: bloody stool. Genitourinary: Reports: no symptoms. Musculoskeletal: Reports: no symptoms. Skin: Reports: no symptoms. Neurological/Psychological: Reports: no symptoms. Hematologic/Endocrine: Reports: no symptoms. Immunologic/Allergic: Reports: no symptoms. 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 FATHER FH: tuberculosis Relation not specified for: FH: breast cancer Psychosocial History Where Do You Live? Home Who Do You Live With? spouse Services at Home: None Primary Language: Nepali Smoking Status: Never Smoked ETOH Use: occasional use Illicit Drug Use: denies illicit drug use Functional Ability ADLs Independent: dressing, eating, toileting, bathing. Ambulation: independent IADLs Independent: shopping, housework, finances, food prep, telephone, transportation , medication admin. Employment History Employment: Employed Exam & Diagnostic Data Vital Signs and I&O Vital Signs Date Time Temp Pulse Resp B/P B/P Pulse O2 O2 Flow FiO2 Mean Ox Delivery Rate 08/04 0800 93 Nasal 2.0L Cannula 08/04 0746 98.3 88 20 108/64 91 Nasal Cannula 08/04 0000 96 Nasal 2.0L Cannula 08/03 2319 98.7 86 20 100/60 95 Nasal 2.0L Cannula 08/03 1813 Nasal 2.0L Cannula 08/03 1806 98.6 99 19 110/82 97 Room Air 08/03 1730 97.5 97 18 133/70 95 Nasal 2.0L Cannula 08/03 1429 97.8 100 18 115/68 94 Intake & Output 08/04 1600 08/04 0800 08/04 0000 Intake Total 600 225 Output Total 450 250 Balance 150 -25 Intake, IV 600 225 Output, Urine 450 250 Patient 250 lb Weight Weight Reported by Patient Measurement Method Physical Exam: Alert, NAD MMM no oral lesions or thrush Neck supple no LAD no TM RRR, normal S1/S2 CTAB, no wheezing +BS, soft, mildly ttp LLQ no mass no rebound/guarding, no palpable HSM No edema No rash No cervical, supraclav, axillary, inguinal adenopathy Assessment/Plan Assessment: 56M with diabetes and Klinefelter's syndrome admitted with thrombocytopenia and leukopenia in the setting of possible viral syndrome. His elevated LDH is concerning but may be hepatic in source given his mild transaminitis as well. Would rule out hemolysis with haptoglobin and I will review the smear for schistocytosis. He is notably B12 deficient. It also appears he has had peripheral blood flow cytometry in the past, although the reason is unclear. This may indicate a more chronic issue with his CBC and further records from his PCP have been requested Recommendations: Leukopenia/Thrombocytopenia - will review smear but suspicion for microangiopathic hemolytic process is low. His hemoglobin was normal on admission and has only mildly decreased since. Suspicion low for primary hematologic malignancy but MDS is a consideration. If CBC changes are related to viral syndrome they should improve with time. No indication for transfusion or use of growth factor at this time. B12 deficiency - would give IM B12 1000 mcg and start on oral 1000 mcg daily. D-dimer - elevated but clinically low probability for thrombosis. Venous duplex ultrasound performed this morning, result pending. Adolfo Martinez MD [phone] Consult Acknowledgment - Thank you for your consult request.
--- NOTE | 2016-08-04 12:54 | ULTRASOUND REPORT ---
EXAMINATION: US TRIPLEX LOWER EXTREMITY, BILATERAL CLINICAL INFORMATION: History of deep vein thrombosis. Tachycardia and elevated D-dimer. COMPARISON: Right lower extremity venous ultrasound from 08/12/2013. TECHNIQUE: Color-flow triplex imaging with spectral analysis and compression Doppler were performed on the bilateral lower extremities. FINDINGS: The common femoral vein is compressible and exhibits a normal phasic waveform, bilaterally; this suggests that the iliac veins are widely patent above. Within each proximal thigh, the visualized profunda femoris vein is patent. The visualized greater saphenous vein and saphenofemoral junction are normal, bilaterally. Superficial femoral vein is patent in the proximal, mid and distal aspect of each thigh. Popliteal vein appears normal to the level of the trifurcation, bilaterally, and the visualized calf veins are appear patent on color Doppler imaging. Within the right popliteal fossa, medially, there is a small 0.6 cm Ta's cyst. IMPRESSION: No evidence of deep vein thrombosis in either lower extremity.
[2016-08-04 14:36] VITALS: BP 100/72
[2016-08-04 17:28] VITALS: BP 108/68
[2016-08-04 21:55] VITALS: BP 112/64
[2016-08-05 06:28] VITALS: BP 98/64
--- NOTE | 2016-08-05 07:10 | PN- Housestaff ---
Subjective Follow-up For: Leukopenia Thrombocytopenia Possible Tick borne illness Subjective: Patient seen and examined. He is seen lying upright in bed resting comfortably. He appears to be in no acute distress. He reports that since yesterday afternoon he has developed a very itchy red rash in multiple areas of his body that has been progressively worsening. He does not endorse any associated respiratory distress. Additionally he admits to an abrupt episode so nausea with associated simulataneous diarrhea and vomiting with associated chills since yesterday. He admits to a persistent cough. He denies any headache, chest pain, palpitations. No overnight events reported other than above. Review of Systems Constitutional: Reports: see HPI. Objective Last 24 Hrs of Vital Signs/I&O Vital Signs Date Time Temp Pulse Resp B/P B/P Pulse O2 O2 Flow FiO2 Mean Ox Delivery Rate 08/05 0800 96 Room Air Room Air 08/05 0628 98.0 73 20 98/64 95 08/04 2155 98.8 81 20 112/64 96 Room Air 08/04 1728 98.1 88 18 108/68 98 Room Air Room Air 08/04 1600 94 Room Air Room Air 08/04 1436 97.6 77 20 100/72 96 Nasal 2.0L Cannula Intake & Output 08/05 1600 08/05 0800 08/05 0000 Intake Total 1400 Output Total 500 1100 Balance -500 300 Intake, Oral 1400 Number 2 Bowel Movements Output, Urine 500 1100 Physical Exam General Appearance: Alert, Oriented X3, Cooperative, No Acute Distress Other Physical Findings: General - well developed, well nourished obese middle aged man in no acute distress HEENT - NCAT, PERRL, EOMI, anicteric sclera, nasal cannula in place CVS - S1, S2 w/o m/g/r Resp - CTA bilatearlly, audible nonproductive cough with deep inspiration GI - soft, obese, mild LUQ/LLQ tenderness without guarding/rigidity, nondistended, bowel sounds intact Neuro - Awake and alert, CN II - XII grossly intact Ext - normal pulses, no cyanosis/clubbing/edema Skin - mild small erythematous pruritic areas with associated minor excoriates on low abdomen, legs, and low back with occassional other areas, no obvious drainage Current Medications: Current Medications Sig/Hedy Start time Last Medication Dose Route Stop Time Status Admin Acetaminophen 500 MG Q6P PRN 08/04 1330 AC PO Atovaquone 750 MG BID 08/03 2200 DC 08/05 PO 0845 Azithromycin 250 MG DAILY 08/04 1000 DC 08/05 PO 0845 Cyanocobalamin 1,000 MCG DAILY 08/04 1322 AC 08/05 PO 0845 Diphenhydramine HCl 50 MG ONCE ONE 08/05 1115 DC 08/05 IV 08/05 1116 1116 Diphenhydramine HCl 25 MG Q6P PRN 08/05 1115 AC PO Diphenhydramine HCl 25 MG ONCE ONE 08/05 0545 DC 08/05 PO 08/05 0546 0633 Diphenhydramine HCl 25 MG ONCE ONE 08/04 2245 DC 08/04 PO 08/04 224 2343 Guaifenesin 10 ML .STK-MED ONE 08/04 2120 DC PO 08/04 2121 Guaifenesin 10 ML .STK-MED ONE 08/04 1628 DC PO 08/04 1629 Guaifenesin 10 ML Q6P PRN 08/03 2200 AC 08/04 PO 2124 Insulin Aspart 0 TIDAC 08/04 1200 AC SC Insulin Detemir 3 UNITS BID 08/03 2200 AC 08/05 SC 0844 Morphine Sulfate 2 MG Q4P PRN 08/03 1330 AC IV Ondansetron HCl 4 MG Q6P PRN 08/03 1330 AC IV Oxycodone HCl 5 MG Q6P PRN 08/04 1330 AC 08/05 PO 0634 Last 24 Hrs of Lab/Ismael Results Last 24 Hrs of Labs/Mics: Laboratory Tests 08/05/16 1049: Anion Gap 11, Estimated GFR > 60, BUN/Creatinine Ratio 16.7, PT 11.1, INR 1.06, APTT 31, Fibrinogen Activity 244, Fibrin Degrad Products >10 but < 40 ug/ml H, CBC w Diff NO MAN DIFF REQ, RBC 4.91, MCV 78.7 L, MCH 25.6 L, RDW 17.6 H, MPV 11.9 H, Gran % 48.6, Lymphocytes % 43.7, Monocytes % 6.8, Eosinophils % 0.6, Basophils % 0.3, Absolute Granulocytes 2.9, Absolute Lymphocytes 2.6, Absolute Monocytes 0.4, Absolute Eosinophils 0, Absolute Basophils 0, PUBS MCHC 32.6 L 08/05/16 0600: Babesia microti DNA PCR Pending, Ehrlichia DNA (PCR) Pending Microbiology 08/05 1743 STOOL: Clostridium difficile Toxin A & B - CAN Cancelled: SPECIMEN NOT RECEIVED IN LABORATORY 08/04 1734 LOWER RESP: Respiratory Culture - CAN Cancelled: POOR QUALITY SPECIMEN CALLED [facility] FOR RECOLLECT AT 2100 08/04 1734 LOWER RESP: Gram Stain - CAN Cancelled: POOR QUALITY SPECIMEN CALLED [facility] FOR RECOLLECT AT 2099 Assessment/Plan Assessment: 56 year old man with past medical history of Klinefelters, hypothyroidism, and diabetes mellitus seen for evaluation of "feeling sick" with nausea/vomiting/ diarrhea and associated fever/chills for one week. Hospital Day 3 Patient reports an abrupt episodes of nausea with associated vomiting and diarrhea yesterday afternoon with associated intermittent chills. Additionally he notes new areas of pruritic rashes throughout his body without associated respiratory symptoms. Blood counts demonstrate improvement of his white blood cells and platelets, chemistries demonstrate improving creatinine. Coagulation panel demonstrates improving coagulatopathy. He is to be discontinued from Azithromycin and Atovaquone and to be followed off antibiotics for now, per infectious disease consultants recommondations. Anaplasma and Babesia PCR studies pending. Leukopenia/Thrombocytopenia/Transaminitis/Acute Kidney Injury Given patients mutliple vague complaints and findings of leukopenia, thrombocytopenia, and hepatic/renal function derangements its possible patient has a tick borne illness such as babesiosis, but other coinfections such as anaplasmosis or viral infection should be considered. -General Medicine -Azithromycin discontinued -Atovaquone discontinued -Guaifenesin 10mL PO Q6H PRN Cough -Zofran 4mg IV Q6H PRN Nausea -Infectious Disease Consult -Heme/Onc Consult -Daily CBC/BEP Elevated LDH/D-Dimer Low modified well's score for PE. Patient does have have new nonproductive cough. Bilateral LE US did not identify any deep venous thrombosis. -Consider CTA when creatinine improves B-12 Deficiency -B12 1,000mcg IM ONCE -B12 1,000mcg PO Daily Diabetes Mellitus -Accuchecks TIDAC/HS -Hold oral hypoglycemics -Novolog SSI -Levemir 3U SC BID -Diabetic Diet Pain plan-Acetaminophen/Oxycodone Diet-Diabetic Diet DVT PPx-ALPS Code Status-FULL CODE Problem List: 1. Klinefelter syndrome 2. Thrombocytopenia 3. Leukopenia Pain Ratin Pain Location: None Pain Goal: Remain pain free Pain Plan: See assessment Tomorrow's Labs & Rationales: CBC-leukopenia / thrombocytopenia BEP - acute kidney injury
--- NOTE | 2016-08-05 07:38 | NUR ---
PT DEVELOPED HIVES LAST PM, DR. ROTH AWARE, BENDRYL GIVEN WITH LITTLE EFFECT TIMES 2. NO SHORTNESS OF BREATH, HIVES STARTED ON LOWER ABDOMEN, GROIN, THIGHS. FIRST BENEDRYL GIVEN, HIVES FADED IN THAT AREA, BUT THEN BROKE OUT ON BACK AND ARMS THIS AM. 2ND BENEDRYL GIVEN THIS AM.
--- NOTE | 2016-08-05 10:13 | PN- Hematology ---
Subjective Subjective: He started having hives last night. It is very itchy and painful. He denies any shortness of breath. He denies any chest pain. He does have a cough. He reports diarrhea. He has some fever or chills. He denies any nausea or vomiting. Review of Systems Constitutional: Reports: chills, fever. Denies: weakness. Cardiovascular: Denies: chest pain, peripheral edema. Respiratory: Reports: cough. Denies: hemoptysis, orthopnea, short of breath. Gastrointestinal: Reports: abdominal pain. Denies: diarrhea, melena, nausea, vomiting. Genitourinary: Denies: dysuria. Skin: Reports: rash. Neurological/Psychological: Denies: anxiety. Hematologic/Endocrine: Denies: bleeding. Immunologic/Allergic: Reports: other (Hives). Denies: lymphadenopathy. All Other Systems: Reviewed and Negative Objective Vital Signs and I&Os Vital Signs Date Time Temp Pulse Resp B/P B/P Pulse O2 O2 Flow FiO2 Mean Ox Delivery Rate 08/05 0628 98.0 73 20 98/64 95 08/04 2155 98.8 81 20 112/64 96 Room Air 08/04 1728 98.1 88 18 108/68 98 Room Air Room Air 08/04 1600 94 Room Air Room Air 08/04 1436 97.6 77 20 100/72 96 Nasal 2.0L Cannula Intake & Output 08/05 1600 08/05 0800 08/05 0000 08/04 1600 08/04 0800 08/04 0000 Intake Total 1400 1175 600 225 Output Total 500 1100 400 450 250 Balance -500 300 775 150 -25 Intake, IV 375 600 225 Intake, Oral 1400 800 Number 2 0 Bowel Movements Output, Urine 500 1100 400 450 250 Patient 113.398 kg Weight Weight Reported by Patient Measurement Method Physical Exam General Appearance: alert, awake, comfortable Head: atraumatic Ears, Nose, Throat: normal pharynx Respiratory: normal breath sounds, chest non-tender, quiet respiration Cardiovascular: regular rate/rhythm Abdomen: normal bowel sounds, soft, non-tender, hepatomegaly Extremities: normal inspection, no edema Neurologic/Psychiatric: alert, oriented x 3 Skin: diffuse hives in the chest, back, abdomen, and extremities Lymphatic: no adenopathy throughout Current Medications: Current Medications Sig/Hedy Start time Last Medication Dose Route Stop Time Status Admin Acetaminophen 500 MG Q6P PRN 08/04 1330 AC PO Atovaquone 750 MG BID 08/03 2200 AC 08/05 PO 0845 Azithromycin 250 MG DAILY 08/04 1000 AC 08/05 PO 0845 Cyanocobalamin 1,000 MCG ONCE ONE 08/04 1330 CAN IM 08/04 1331 Cyanocobalamin 1,000 MCG DAILY 08/04 1322 AC 08/05 PO 0845 Cyanocobalamin 1,000 MCG ONCE ONE 08/04 1245 DC 08/04 IM 08/04 1246 1506 Dextrose/Sodium 1,000 ML Q13H 08/03 1330 DC 08/04 Chloride IV 0210 Diphenhydramine HCl 25 MG ONCE ONE 08/05 0545 DC 08/05 PO 08/05 0546 0633 Diphenhydramine HCl 25 MG ONCE ONE 08/04 2245 DC 08/04 PO 08/04 2246 2343 Guaifenesin 10 ML .STK-MED ONE 08/04 2121 DC PO 08/04 212 Guaifenesin 10 ML .STK-MED ONE 08/04 1628 DC PO 08/04 1629 Guaifenesin 10 ML Q6P PRN 08/03 2200 AC 08/04 PO 2124 Insulin Aspart 0 TIDAC 08/04 1200 AC SC Insulin Detemir 3 UNITS BID 08/03 2200 AC 08/05 SC 0844 Insulin Human Regular 0 Q6 08/03 1800 DC 08/04 SC 0614 Morphine Sulfate 2 MG Q4P PRN 08/03 1330 AC IV Ondansetron HCl 4 MG Q6P PRN 08/03 1330 AC IV Oxycodone HCl 5 MG Q6P PRN 08/04 1330 AC 08/05 PO 0634 Results Last 24 Hours of Lab Results: Laboratory Tests 08/04 1340 Hematology Haptoglobin Pending Recent Imaging Studies: CT abdomen/pelvis 08/03/2016: 1. No acute imaging abnormalities within the abdomen or pelvis. 2. Mild hepatosplenomegaly is observed in this obese patient. There are no focal hepatic or splenic lesions on this noncontrast exam. Liver has an attenuation of approximally 40 Hounsfield units (i.e., borderline steatosis). 3. Status post cholecystectomy. Assessment/Plan Assessment/Recommendations: Mr. Ridley is a 56-year-old male with Klinefelter's syndrome, hypogonadism, and HLD who presented with feeling unwell. He was noted to have leukopenia and thrombocytopenia. LDH was noted to be elevated along with the ferritin. Vitamin B12 level was low. His bilirubin is normal. Previous blood work has been normal. He did have a flow cytometry in 2013 which was normal. His leukopenia and thrombocytopenia have improved with treatment of presumed tick- borne illness (azithromycin and atovaquone). This is suggestive of an infectious etiology to his cytopenias. Viral syndrome may trigger this decrease. Ferritin is more elevated than usual for acute reactant but is still possible. Peripheral blood smear was reviewed and was not significant except for some hilda cells, bands, and large platelets. This suggest a peripherally destructive/consumptive process. MDS is less likely. For now, he can be monitored. Iron studies can be checked. He does have new hives today. This is concerning for allergic etiology. He is on new antibiotics. If possible, he should have these changed. 1. Check iron studies: serum iron and TIBC 2. Follow up lymph and tick-borne illness titer 3. Continue vitamin B12 supplementation 4. ID regarding antibiotic changes 5. If no changes, would consider bone marrow biopsy Please call [phone] with any questions or concerns. Problem List: 1. Leukopenia 2. Thrombocytopenia 3. Fever 4. Klinefelter syndrome
--- NOTE | 2016-08-05 10:47 | Cons- Infect Disease ---
General Information and HPI Consulting Request Date of Consult: 08/05/16 Requested By: LJ NICK MD Reason for Consult: Leukopenia/thrombocytopenia/rule out tickborne disease Source of Information: patient History of Present Illness: This is a 56-year-old man with diabetes, hypothyroidism, Klinefelter's syndrome, on testosterone injections, and a remote history of DVT, with chronic diarrhea, admitted on August 03 after presenting to the emergency room with a one-week history of nausea, vomiting, fatigue and one episode of fever and chills. On admission he was afebrile. Laboratory data revealed a white blood cell count of 2.7, with 32 bands, H&H 15 and 45 and platelets 28,000, BUN creatinine 23 and 1.3, bilirubin 1.5, AST/ALT 105 and 91, LDH 2073, with normal coags. Urinalysis rare RBC/rare WBCs. Chest x-ray negative. CT of the abdomen and pelvis revealed mild hepatosplenomegaly. He was begun empirically on Azithromycin and Atovaquone for possible Babesiosis. He has remained afebrile since admission, and his repeat white blood cell count and platelet count increased slightly yesterday. He was noted to have a low vitamin B12 level and has been started on vitamin B12. He reports no further nausea or vomiting but continues to have diarrhea, which is chronic. He has remained afebrile, but has developed a cough after admission. He also notes the development overnight of pruritic hives on his trunk. Of note he denies any recent tick exposure and he has not spent any significant amount of time outdoors so far this year. Allergies/Medications Allergies: Coded Allergies: NO KNOWN ALLERGIES (08/12/13) Home Med List: Aspirin (Ecotrin*) 81 MG TABLET.DR 1 TAB PO DAILY HEART/BLOOD (Reported) Cholecalciferol (Vitamin D3) (Vitamin D) (Unknown Strength) TABLET (Unknown Dose) PO BID SUPPLEMENT (Reported) Dulaglutide (Trulicity) (Unknown Strength) PEN.INJCTR (Unknown Dose) SC QSAT DM (Reported) Insulin Detemir (Levemir Flextouch) 100 UNIT/ML (3 ML) INSULN.PEN 6 UNITS SC QAM DM (Reported) Levothyroxine Sodium 175 MCG TABLET 1 TAB PO DAILY THYROID (Reported) Metformin HCl 1,000 MG TABLET 1 TAB PO 0800,1700 Diabetes Rosuvastatin Calcium (Crestor) 40 MG TABLET 1 TAB PO DAILY CHOLESTEROL ( Reported) Testosterone Cypionate (Unknown Strength) VIAL (Unknown Dose) IM Q2W HRT ( Reported) Past History Travel History Traveled to [place] past 21 day No Medical History Blood Transfusion Hx: No Neurological: NONE EENT: NONE Cardiovascular: NONE Respiratory: NONE Gastrointestinal: status post polypectomy Hepatic: NONE Renal: NONE Psychiatric: NONE Endocrine: diabetes, hypothyroidism Blood Disorders: NONE Cancer(s): NONE 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 FATHER FH: tuberculosis Relation not specified for: FH: breast cancer Psychosocial History Where Do You Live? Home Who Do You Live With? spouse Services at Home: None Primary Language: Kiswahili Smoking Status: Never Smoked ETOH Use: occasional use Illicit Drug Use: denies illicit drug use Functional Ability ADLs Independent: dressing, eating, toileting, bathing. Ambulation: independent IADLs Independent: shopping, housework, finances, food prep, telephone, transportation , medication admin. Sexual History Sexually Active: Yes Number of Partners: 1 Sexual Orientation: Heterosexual Use of Protection: No Employment History Employment: Employed Review of Systems Review of Systems Constitutional: Reports: unexplained weight loss. GI: Reports: diarrhea. Exam & Diagnostic Data Last 24 Hrs of Vital Signs/I&O Vital Signs Date Time Temp Pulse Resp B/P B/P Pulse O2 O2 Flow FiO2 Mean Ox Delivery Rate 08/05 0628 98.0 73 20 98/64 95 08/04 2155 98.8 81 20 112/64 96 Room Air 08/04 1728 98.1 88 18 108/68 98 Room Air Room Air 08/04 1600 94 Room Air Room Air 08/04 1436 97.6 77 20 100/72 96 Nasal 2.0L Cannula Intake & Output 08/05 1600 08/05 0800 08/05 0000 Intake Total 1400 Output Total 500 1100 Balance -500 300 Intake, Oral 1400 Number 2 Bowel Movements Output, Urine 500 1100 Physical Exam Other Physical Findings: He is awake and alert in no acute distress. He is afebrile. Skin reveals hives on his trunk. HEENT exam is negative. Neck is supple with no adenopathy. Chest gynecomastia. Lungs are clear. Heart regular rhythm with no murmur. Abdomen truncal obesity, soft, mildly tender on palpation of the left lower quadrant, with no guarding or rebound, with positive bowel sounds. Back no CVA tenderness. Extremities no cyanosis, clubbing or edema. Neuro is without focality. Last 24 Hours of Lab Results: Laboratory Tests 08/05 08/04 0600 1340 Hematology Haptoglobin Pending Serology Babesia microti DNA PCR Pending Ehrlichia DNA (PCR) Pending Last 24 Hours of Ismael Results: Blood cultures 2 August 03 negative Rapid flu swab August 03 negative Diagnostic Data Recent Imaging Findings: Chest x-ray August [address] of the abdomen and pelvis without contrast on August 03 mild hepatosplenomegaly Dopplers of both lower extremities August 04 negative Assessment/Plan Assessment/Plan Impression: This is a 56-year-old man with a history of diabetes, hypothyroidism and Klinefelter's syndrome, with chronic diarrhea, admitted on August 03 with a one week history of nausea, vomiting and fatigue and one episode of fever and chills , found on admission to be afebrile with leukopenia, thrombocytopenia, elevated liver enzymes and mild renal insufficiency and found to have a low vitamin B12 level, treated empirically for Babesiosis with a slight increase in his white blood cell count and platelet counts yesterday but with the development of hives overnight. The leukopenia and thrombocytopenia do raise concern for a tickborne infection such as Anaplasma, though his peripheral smear does not reveal any morulae. Babesiosis is also a possibility, though he is not anemic, has no evidence for hemolysis and his peripheral smear did not reveal any ring forms. A viral illness is also possible, with his diarrhea, though this is apparently a chronic problem. Of note he has been afebrile despite his history of a febrile episode prior to admission, raising concern for a noninfectious process, for example vitamin B12 deficiency, which can explain his leukopenia and thrombocytopenia, or an underlying bone marrow disorder. The hives are likely drug-related, most likely the Atovaquone, and, at this point, it may be best to discontinue his empiric treatment pending further evaluation. If his white blood cell count and/or platelet count remain low then empiric treatment for Anaplasma, with Doxycycline, may be appropriate. Suggestion: 1. Serum for PCR for Anaplasma and Babesia 2. Lyme titer 3. Await blood work (CBC and chemistries) from today 4. Discontinue Azithromycin and Atovaquone and follow off antibiotics pending above Consult Acknowledgment - Thank you for your consult request.
[2016-08-05 11:25] LABS: ABSOLUTE BASOPHIL COUNT 0 /CUMM (0.0-0.2); ABSOLUTE EOSINOPHIL COUNT 0 /CUMM (0.0-0.7); ABSOLUTE GRANULOCYTE CT 2.9 /CUMM (1.4-6.5); ABSOLUTE LYMPH COUNT 2.6 /CUMM (1.2-3.4); ABSOLUTE MONOCYTE COUNT 0.4 /CUMM (0.10-0.60); BASOPHIL % 0.3 % (0.0-2.0); EOSINOPHIL % 0.6 % (0-5); GRANULOCYTE % 48.6 % (42.2-75.2); HEMATOCRIT 38.7 % (42-52); MEAN CORPUSCULAR HGB 25.6 PG (27.0-31.0); MEAN CORPUSCULAR HGB CONC 32.6 G/DL (33.0-37.0); MEAN CORPUSCULAR VOLUME 78.7 FL (80.0-94.0); MEAN PLATELET VOLUME 11.9 FL (7.4-10.4); RBC DISTRIBUTION WIDTH 17.6 % (11.5-14.5); RED BLOOD CELL CT 4.91 /CUMM (4.70-6.10)
[2016-08-05 11:30] LABS: PLATELET COUNT 56 /CUMM (130-400)
[2016-08-05 11:36] LABS: PT 11.1 SEC (9.4-12.5); PTT 31 SEC (25-37)
--- NOTE | 2016-08-05 13:39 | PN- Att Addend ---
Attending Addendum Attending Brief Note Patient seen and examined. He is a 56-year-old male with a past medical history of Klinefelter syndrome, diabetes and hypertension who is here with pancytopenia. Initially the thought was a tickborne illness and he was started on azithromycin and atovaquone for presumed babesiosis as he also had a mildly elevated bili, and an elevated LDH suggestive of hemolysis. In speaking to Dr. Shereen olsen at length, the decision was made to stop the azithromycin and atovaquone as his pancytopenia goes along more with anaplasmosis, his reticulocyte is not high his crit is stable and he is developing side effects from the atovaquone including hives. His numbers are getting better in terms of his white cell count and his thrombocytopenia, if in fact this is anaplasmosis, without any treatment at all. Will watch his counts closely. Begin to follow the tickborne panel that was sent out. Watch the bandemia and blood pressure and follow-up. I do think that his elevated LDH and low-grade hemolysis may be explained by vitamin B12 deficiency which is newly diagnosed here.
[2016-08-05 14:56] VITALS: BP 104/60
[2016-08-05 21:54] VITALS: BP 112/68
--- NOTE | 2016-08-05 23:34 | NUR ---
PT C/O HOARSENESS WITH NO THROAT PAIN. ALSO STATES AT THSI TIME THAT THE HIVES TO HIS BACK APPEAR TO BE WORSENING. RASH DOES APPEAR TO BE SLIGHTLY REDDER THAN EARLIER IN SHIFT. BENADRYL GIVEN PER ORDERS AND BOX SPRING MAKER NOTIFIED. WILL CONTINUE TO MONITOR.
--- NOTE | 2016-08-06 03:24 | NUR ---
PT'S HIVES SPREADING AT THIS TIME. NOW NOTED TO BE ON FACE, TORSO, BUE, AND BLE. 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 ORDER RECEIVED FOR IV BENADRYL. WILL MONITOR.
[2016-08-06 06:25] VITALS: BP 108/60
--- NOTE | 2016-08-06 07:12 | PN- Housestaff ---
BRYANT ALEXANDER MD 08/06/16 0711: Subjective Follow-up For: Leukopenia Thrombocytopenia Possible Tick borne illness Subjective: Patient seen and examined. He is seen sitting upright in his chair at bedside. He appears to be in no acute distress. He reports that his rash is getting worse , more diffuse, and is persistently itchy. It has now spread to his lip/mouth and is unable to drink fluids without a straw because of this. He denies any increased respiratory effort, chest tightness, tongue swelling or shortness of breath. He does admit to a persistent cough. He nausea, vomiting, and diarrhea and now resolved. Otherwise he denies any fever, chills, chest pain. No overnight events reported. Review of Systems Constitutional: Reports: see HPI. Objective Last 24 Hrs of Vital Signs/I&O Vital Signs Date Time Temp Pulse Resp B/P B/P Pulse O2 O2 Flow FiO2 Mean Ox Delivery Rate 08/06 0625 98.1 59 20 108/60 96 Room Air 08/05 2154 97.4 62 18 112/68 96 Room Air 08/05 1456 98.0 70 20 104/60 94 Room Air Intake & Output 08/06 1600 08/06 0800 08/06 0000 Intake Total 800 Output Total 500 300 Balance -500 500 Intake, Oral 800 Output, Urine 500 300 Physical Exam General Appearance: Alert, Oriented X3, Cooperative, No Acute Distress Other Physical Findings: General - well developed, well nourished obese middle aged man in no acute distress HEENT - NCAT, PERRL, EOMI, anicteric sclera, nasal cannula in place, right sided lip swelling CVS - S1, S2 w/o m/g/r Resp - CTA bilatearlly, audible nonproductive cough with deep inspiration GI - soft, obese, mild LUQ/LLQ tenderness without guarding/rigidity, nondistended, bowel sounds intact Neuro - Awake and alert, CN II - XII grossly intact Ext - normal pulses, no cyanosis/clubbing/edema Skin - mild small erythematous pruritic areas with associated minor excoriates on low abdomen, legs, and low back with occassional other areas, no obvious drainage Current Medications: Current Medications Sig/Hedy Start time Last Medication Dose Route Stop Time Status Admin Acetaminophen 500 MG Q6P PRN 08/04 1330 AC PO Atovaquone 750 MG BID 08/03 2200 DC 08/05 PO 0845 Azithromycin 250 MG DAILY 08/04 1000 DC 08/05 PO 0845 Cyanocobalamin 1,000 MCG DAILY 08/04 1322 AC 08/06 PO 0904 Diphenhydramine HCl 25 MG Q6P PRN 08/06 1200 AC PO Diphenhydramine HCl 25 MG Q2 HRS NEEDED PRN 08/06 0330 DC 08/06 IV 0906 Diphenhydramine HCl 50 MG ONCE ONE 08/05 1115 DC 08/05 IV 08/05 1116 1116 Diphenhydramine HCl 25 MG Q6P PRN 08/05 1115 DC 08/05 PO 2155 Famotidine 20 MG DAILY 08/06 1000 AC PO Guaifenesin 10 ML .STK-MED ONE 08/05 2156 DC PO 08/05 2157 Guaifenesin 10 ML Q6P PRN 08/03 2200 AC 08/06 PO 0334 Insulin Aspart 0 TIDAC 08/04 1200 AC 08/05 SC 1731 Insulin Detemir 3 UNITS BID 08/03 2200 AC 08/06 SC 0903 Methylprednisolone 125 MG ONCE ONE 08/06 0845 DC IV 08/06 0846 Morphine Sulfate 2 MG Q4P PRN 08/03 1330 AC IV Ondansetron HCl 4 MG Q6P PRN 08/03 1330 AC IV Oxycodone HCl 5 MG Q6P PRN 08/04 1330 AC 08/05 PO 2155 Patient Medication 1 ED .STK-MED ONE 08/05 1342 DC Teaching ED 08/05 1343 Potassium Chloride 40 MEQ ONCE ONE 08/06 0830 DC PO 08/06 0831 Last 24 Hrs of Lab/Ismael Results Last 24 Hrs of Labs/Mics: Laboratory Tests 08/06/16 0620: Anion Gap 8, Estimated GFR > 60, BUN/Creatinine Ratio 16.7, Iron 57, TIBC 230 L , Total Bilirubin 0.7, Direct Bilirubin 0.3, AST 69 H, ALT 79 H, Alkaline Phosphatase 52, Lactate Dehydrogenase 750 H, Total Protein 5.5 L, Albumin 2.8 L, CBC w Diff MAN DIFF ORDERED, RBC 4.53 L, MCV 78.7 L, MCH 25.8 L, RDW 17.8 H, MPV 12.3 H, Gran % 39.9 L, Lymphocytes % 50.9, Monocytes % 7.5, Eosinophils % 1.4, Basophils % 0.3, Absolute Granulocytes 3.0, Absolute Lymphocytes 3.8 H, Absolute Monocytes 0.6, Absolute Eosinophils 0.1, Absolute Basophils 0, Platelet Estimate DECREASED, Hypochromic-Microcytic 1+, Poikilocytosis 1+, Anisocytosis 1 +, Microcytic Cells 1+, Ovalocytes 1+, Cheng Cells 1+, PUBS MCHC 32.8 L Assessment/Plan Assessment: 56 year old man with past medical history of Klinefelters, hypothyroidism, and diabetes mellitus seen for evaluation of "feeling sick" with nausea/vomiting/ diarrhea and associated fever/chills for one week. Hospital Day 4 Patient has a persistent rash that waxes/wanes and is continued on both intravenous and oral benadryl. The rash has become acutely worse this morning and has spread to his face for which he was given intravenous steroids; blood work was drawn prior to this. Labs demonstrated improvement of his leukopenia, thrombocytopenia, without change to liver function tests or renal function. PCR studies still pending. Leukopenia/Thrombocytopenia/Transaminitis/Acute Kidney Injury Given patients mutliple vague complaints and findings of leukopenia, thrombocytopenia, and hepatic/renal function derangements its possible patient has a tick borne illness such as babesiosis, but other coinfections such as anaplasmosis or viral infection should be considered. Patient received two days worth of Azithromycin/Atovaqone for suspicion of babesiosis, however was discontinued off of them as he developed a pruitic rash. -General Medicine -Guaifenesin 10mL PO Q6H PRN Cough -Zofran 4mg IV Q6H PRN Nausea -Infectious Disease Consult -Heme/Onc Consult -Daily CBC/BEP Elevated LDH/D-Dimer Low modified well's score for PE. Patient does have have new nonproductive cough. Bilateral LE US did not identify any deep venous thrombosis. -Consider CTA when creatinine improves B-12 Deficiency -B12 1,000mcg IM ONCE -B12 1,000mcg PO Daily Diabetes Mellitus -Accuchecks TIDAC/HS -Hold oral hypoglycemics -Novolog SSI -Levemir 3U SC BID -Diabetic Diet Pain plan-Acetaminophen/Oxycodone Diet-Diabetic Diet DVT PPx-ALPS Code Status-FULL CODE Problem List: 1. Klinefelter syndrome 2. Leukopenia 3. Thrombocytopenia Pain Ratin Pain Location: None Pain Goal: Pain 7 or less Pain Plan: See assessment Tomorrow's Labs & Rationales: CBC - leukopenia/thrombocytopenia BEP - renal function LFTs - transaminitis LJ NICK MD 08/06/16 1347: Attending MD Review Statement Attending Statement Attending MD Statement: examined this patient, discuss w/resident/PA/BRASS POURER, agreed w/resident/PA/BRASS POURER, reviewed EMR data (avail), discussed with nursing, discussed with case mgmt Attending Assessment/Plan: Events noted. Patient's urticarial rash and hives are getting worse along with some lip swelling and questionable hoarseness. Patient was given a dose of steroids after the team discussed with he Hem/onc and we are worried about angioedema and he is being continued on his H1 and H2 blockers. His counts continue to increase and improve off all antibiotics. The azithromycin and atovaquone was stopped yesterday. The presumptive diagnosis is a tickborne illness questionable Anaplasma versus a viral illness that caused pancytopenia with leukopenia and thrombocytopenia out of proportion to the anemia along with B12 deficiency and an elevated LDH and high ferritin with a mildly elevated bili. If his urticarial rash doesn't improve will need to stop the B12 as well and follow closely.
[2016-08-06 07:47] LABS: ABSOLUTE BASOPHIL COUNT 0 /CUMM (0.0-0.2); ABSOLUTE EOSINOPHIL COUNT 0.1 /CUMM (0.0-0.7); ABSOLUTE LYMPH COUNT 3.8 /CUMM (1.2-3.4); ABSOLUTE MONOCYTE COUNT 0.6 /CUMM (0.10-0.60); BASOPHIL % 0.3 % (0.0-2.0); EOSINOPHIL % 1.4 % (0-5); GRANULOCYTE % 39.9 % (42.2-75.2); HEMATOCRIT 35.7 % (42-52); MEAN CORPUSCULAR HGB 25.8 PG (27.0-31.0); MEAN CORPUSCULAR HGB CONC 32.8 G/DL (33.0-37.0); MEAN CORPUSCULAR VOLUME 78.7 FL (80.0-94.0); MEAN PLATELET VOLUME 12.3 FL (7.4-10.4); RBC DISTRIBUTION WIDTH 17.8 % (11.5-14.5); RED BLOOD CELL CT 4.53 /CUMM (4.70-6.10); WHITE BLOOD CELL COUNT 7.5 /CUMM (4.8-10.8)
[2016-08-06 08:02] LABS: PLATELET COUNT 92 /CUMM (130-400)
--- NOTE | 2016-08-06 10:08 | PN- Hematology ---
Subjective Subjective: He noted that he had lip swelling on the right side last night. He felt that his throat was swollen and had vocal hoarseness. He still has hives. He denies any shortness of breath. He has some coughing. Review of Systems: Constitutional: Reports: night sweats, vocal hoarseness. Denies: weakness. HEENT: Reports: lip swelling. Cardiovascular: Denies: chest pain, peripheral edema. Respiratory: Reports: cough. Denies: hemoptysis, orthopnea, short of breath. Gastrointestinal: Reports: abdominal pain. Denies: diarrhea, melena, nausea, vomiting. Skin: Reports: hives. Neurological/Psychological: Denies: anxiety. Hematologic/Endocrine: Denies: bleeding. Immunologic/Allergic: Reports: other (Hives). Denies: lymphadenopathy. All Other Systems: Reviewed and Negative Objective Vital Signs and I&Os Vital Signs Date Time Temp Pulse Resp B/P B/P Pulse O2 O2 Flow FiO2 Mean Ox Delivery Rate 08/06 0625 98.1 59 20 108/60 96 Room Air 08/05 2154 97.4 62 18 112/68 96 Room Air 08/05 1456 98.0 70 20 104/60 94 Room Air Intake & Output 08/06 1600 08/06 0800 08/06 0000 08/05 1600 08/05 0800 08/05 0000 Intake Total 007 929 2575 Output Total 500 300 760 050 5847 Balance -500 500 400 -500 300 Intake, Oral 932 470 8102 Number 0 2 Bowel Movements Output, Urine 500 300 453 078 4663 Physical Exam: General Appearance: alert, awake, comfortable Head: atraumatic Ears, Nose, Throat: normal pharynx. Right upper and lower lip with edema and ? vesicular lesion Respiratory: normal breath sounds, chest non-tender, quiet respiration Cardiovascular: regular rate/rhythm Abdomen: normal bowel sounds, soft, non-tender, hepatomegaly Extremities: normal inspection, no edema Neurologic/Psychiatric: alert, oriented x 3 Skin: diffuse hives in the chest, back, abdomen, and extremities Lymphatic: no adenopathy throughout Current Medications: Current Medications Sig/Hedy Start time Last Medication Dose Route Stop Time Status Admin Acetaminophen 500 MG Q6P PRN 08/04 1330 AC PO Atovaquone 750 MG BID 08/03 2200 DC 08/05 PO 0845 Azithromycin 250 MG DAILY 08/04 1000 DC 08/05 PO 0845 Cyanocobalamin 1,000 MCG DAILY 08/04 1322 AC 08/06 PO 0904 Diphenhydramine HCl 25 MG Q6P PRN 08/06 1200 AC PO Diphenhydramine HCl 25 MG Q2 HRS NEEDED PRN 08/06 0330 DC 08/06 IV 0906 Diphenhydramine HCl 50 MG ONCE ONE 08/05 1115 DC 08/05 IV 08/05 1116 1116 Diphenhydramine HCl 25 MG Q6P PRN 08/05 1115 DC 08/05 PO 2155 Famotidine 20 MG DAILY 08/06 1000 AC PO Guaifenesin 10 ML .STK-MED ONE 08/05 2156 DC PO 08/05 2157 Guaifenesin 10 ML Q6P PRN 08/03 2200 AC 08/06 PO 0334 Insulin Aspart 0 TIDAC 08/04 1200 AC 08/05 SC 1731 Insulin Detemir 3 UNITS BID 08/03 2200 AC 08/06 SC 0903 Methylprednisolone 125 MG ONCE ONE 08/06 0845 DC IV 08/06 0846 Morphine Sulfate 2 MG Q4P PRN 08/03 1330 AC IV Ondansetron HCl 4 MG Q6P PRN 08/03 1330 AC IV Oxycodone HCl 5 MG Q6P PRN 08/04 1330 AC 08/05 PO 2155 Patient Medication 1 ED .STK-MED ONE 08/05 1342 DC Teaching ED 08/05 1343 Potassium Chloride 40 MEQ ONCE ONE 08/06 0830 DC PO 08/06 0831 Results Last 24 Hours of Lab Results: Laboratory Tests 08/06 0620 Chemistry Sodium (137 - 145 mmol/L) 140 Potassium (3.5 - 5.1 mmol/L) 3.4 L Chloride (98 - 107 mmol/L) 105 Carbon Dioxide (22 - 30 mmol/L) 27 Anion Gap (5 - 16) 8 BUN (9 - 20 mg/dL) 20 Creatinine (0.7 - 1.2 mg/dL) 1.2 Estimated GFR (>60 ml/min) > 60 BUN/Creatinine Ratio (7 - 25 %) 16.7 Iron (49 - 181 ug/dL) 57 TIBC (261 - 462 ug/dL) 230 L Total Bilirubin (0.2 - 1.3 mg/dL) 0.7 Direct Bilirubin (< 0.4 mg/dL) 0.3 AST (17 - 59 U/L) 69 H ALT (21 - 72 U/L) 79 H Alkaline Phosphatase (< 127 U/L) 52 Lactate Dehydrogenase (313 - 618 U/L) 750 H Total Protein (6.3 - 8.2 g/dL) 5.5 L Albumin (3.5 - 5.0 g/dL) 2.8 L Hematology CBC w Diff MAN DIFF ORDERED WBC (4.8 - 10.8 /CUMM) 7.5 RBC (4.70 - 6.10 /CUMM) 4.53 L Hgb (14.0 - 18.0 G/DL) 11.7 L Hct (42 - 52 %) 35.7 L MCV (80.0 - 94.0 FL) 78.7 L MCH (27.0 - 31.0 PG) 25.8 L RDW (11.5 - 14.5 %) 17.8 H Plt Count (130 - 400 /CUMM) 92 L MPV (7.4 - 10.4 FL) 12.3 H Gran % (42.2 - 75.2 %) 39.9 L Lymphocytes % (20.5 - 51.1 %) 50.9 Monocytes % (1.7 - 9.3 %) 7.5 Eosinophils % (0 - 5 %) 1.4 Basophils % (0.0 - 2.0 %) 0.3 Absolute Granulocytes (1.4 - 6.5 /CUMM) 3.0 Absolute Lymphocytes (1.2 - 3.4 /CUMM) 3.8 H Absolute Monocytes (0.10 - 0.60 /CUMM) 0.6 Absolute Eosinophils (0.0 - 0.7 /CUMM) 0.1 Absolute Basophils (0.0 - 0.2 /CUMM) 0 Platelet Estimate (ADEQUATE) DECREASED Hypochromic-Microcytic 1+ Poikilocytosis 1+ Anisocytosis 1+ Microcytic Cells 1+ Ovalocytes 1+ Hilda Cells 1+ PUBS MCHC (33.0 - 37.0 G/DL) 32.8 L 08/05 1049 Chemistry Sodium (137 - 145 mmol/L) 136 L Potassium (3.5 - 5.1 mmol/L) 3.6 Chloride (98 - 107 mmol/L) 102 Carbon Dioxide (22 - 30 mmol/L) 24 Anion Gap (5 - 16) 11 BUN (9 - 20 mg/dL) 20 Creatinine (0.7 - 1.2 mg/dL) 1.2 Estimated GFR (>60 ml/min) > 60 BUN/Creatinine Ratio (7 - 25 %) 16.7 Triglycerides (<150 mg/dL) 370 H Coagulation PT (9.4 - 12.5 SEC) 11.1 INR (0.90 - 1.17) 1.06 APTT (25 - 37 SEC) 31 Fibrinogen Activity (200 - 393 MG/DL) 244 Fibrin Degrad Products (< 10 ug/ml) >10 but < 40 ug/ml H Hematology CBC w Diff NO MAN DIFF REQ WBC (4.8 - 10.8 /CUMM) 6.0 RBC (4.70 - 6.10 /CUMM) 4.91 Hgb (14.0 - 18.0 G/DL) 12.6 L Hct (42 - 52 %) 38.7 L MCV (80.0 - 94.0 FL) 78.7 L MCH (27.0 - 31.0 PG) 25.6 L RDW (11.5 - 14.5 %) 17.6 H Plt Count (130 - 400 /CUMM) 56 L MPV (7.4 - 10.4 FL) 11.9 H Gran % (42.2 - 75.2 %) 48.6 Lymphocytes % (20.5 - 51.1 %) 43.7 Monocytes % (1.7 - 9.3 %) 6.8 Eosinophils % (0 - 5 %) 0.6 Basophils % (0.0 - 2.0 %) 0.3 Absolute Granulocytes (1.4 - 6.5 /CUMM) 2.9 Absolute Lymphocytes (1.2 - 3.4 /CUMM) 2.6 Absolute Monocytes (0.10 - 0.60 /CUMM) 0.4 Absolute Eosinophils (0.0 - 0.7 /CUMM) 0 Absolute Basophils (0.0 - 0.2 /CUMM) 0 PUBS MCHC (33.0 - 37.0 G/DL) 32.6 L Assessment/Plan Assessment/Recommendations: Mr. Ridley is a 56-year-old male with Klinefelter's syndrome, hypogonadism, and HLD who presented with feeling unwell. He was noted to have leukopenia and thrombocytopenia. LDH was noted to be elevated along with the ferritin. Vitamin B12 level was low. His bilirubin is normal. Previous blood work has been normal. He did have a flow cytometry in 2014 which was normal. His numbers are improving with normal WBC and increasing platelet count. It is unclear the etiology at the moment. He has had treatment of presumed tick-borne illness (azithromycin and atovaquone). This has been stopped. Viral syndrome may trigger this cytopenias. Ferritin and LDH were extremely elevated. Peripheral blood smear was reviewed and was not significant except for some hilda cells, bands, and large platelets. This suggest a peripherally destructive/ consumptive process. MDS is less likely. Iron studies suggest chronic disesase anemia. Overall, this process is improving. He should still be monitored daily with CBC with differential. He continues to have hives with worsening edema and lip. There is concern for progressive angioedema. He has been given Benadryl. He may need steroid and H1 /H2 blockers. Antibiotics are held. Only new medications for him would be oral vitamin B12. If continues to be an issues, this can also be stopped. He may need IM vitamin B12. 1. Follow up tick-borne illness titers 2. Continue vitamin B12 supplementation (may need to hold if continues to allergic reaction) 3. Follow up ID recommendations 4. Monitor CBC daily Please call [phone] with any questions or concerns. Problem List: 1. Klinefelter syndrome 2. Hepatomegaly 3. Systemic inflammatory response syndrome 4. Leukopenia 5. Thrombocytopenia
--- NOTE | 2016-08-06 11:22 | PN- Infect Dx ---
Subjective Subjective: Afebrile. He complains of progression of his hives, which remain quite pruritic. He is otherwise without complaints. Objective Last 24 Hrs of Vital Signs/I&O Vital Signs Date Time Temp Pulse Resp B/P B/P Pulse O2 O2 Flow FiO2 Mean Ox Delivery Rate 08/06 0625 98.1 59 20 108/60 96 Room Air 08/05 2154 97.4 62 18 112/68 96 Room Air 08/05 1456 98.0 70 20 104/60 94 Room Air Intake & Output 08/06 1600 08/06 0800 08/06 0000 Intake Total 800 Output Total 500 300 Balance -500 500 Intake, Oral 800 Output, Urine 500 300 Physical Exam Other Physical Findings: He appears comfortable in no acute distress Skin hives on his upper extremities, trunk and face HEENT mild facial edema Lungs are clear Heart regular rhythm with no murmur Abdomen obese, soft, tender on palpation over the left upper quadrant and left lower quadrant, with no guarding or rebound, positive bowel sounds Results Last 24 Hours of Lab Results: Laboratory Tests 08/06 06 Chemistry Sodium (137 - 145 mmol/L) 140 Potassium (3.5 - 5.1 mmol/L) 3.4 L Chloride (98 - 107 mmol/L) 105 Carbon Dioxide (22 - 30 mmol/L) 27 Anion Gap (5 - 16) 8 BUN (9 - 20 mg/dL) 20 Creatinine (0.7 - 1.2 mg/dL) 1.2 Estimated GFR (>60 ml/min) > 60 BUN/Creatinine Ratio (7 - 25 %) 16.7 Iron (49 - 181 ug/dL) 57 TIBC (261 - 462 ug/dL) 230 L Total Bilirubin (0.2 - 1.3 mg/dL) 0.7 Direct Bilirubin (< 0.4 mg/dL) 0.3 AST (17 - 59 U/L) 69 H ALT (21 - 72 U/L) 79 H Alkaline Phosphatase (< 127 U/L) 52 Lactate Dehydrogenase (313 - 618 U/L) 750 H Total Protein (6.3 - 8.2 g/dL) 5.5 L Albumin (3.5 - 5.0 g/dL) 2.8 L Hematology CBC w Diff MAN DIFF ORDERED WBC (4.8 - 10.8 /CUMM) 7.5 RBC (4.70 - 6.10 /CUMM) 4.53 L Hgb (14.0 - 18.0 G/DL) 11.7 L Hct (42 - 52 %) 35.7 L MCV (80.0 - 94.0 FL) 78.7 L MCH (27.0 - 31.0 PG) 25.8 L RDW (11.5 - 14.5 %) 17.8 H Plt Count (130 - 400 /CUMM) 92 L MPV (7.4 - 10.4 FL) 12.3 H Gran % (42.2 - 75.2 %) 39.9 L Lymphocytes % (20.5 - 51.1 %) 50.9 Monocytes % (1.7 - 9.3 %) 7.5 Eosinophils % (0 - 5 %) 1.4 Basophils % (0.0 - 2.0 %) 0.3 Absolute Granulocytes (1.4 - 6.5 /CUMM) 3.0 Absolute Lymphocytes (1.2 - 3.4 /CUMM) 3.8 H Absolute Monocytes (0.10 - 0.60 /CUMM) 0.6 Absolute Eosinophils (0.0 - 0.7 /CUMM) 0.1 Absolute Basophils (0.0 - 0.2 /CUMM) 0 Platelet Estimate (ADEQUATE) DECREASED Hypochromic-Microcytic 1+ Poikilocytosis 1+ Anisocytosis 1+ Microcytic Cells 1+ Ovalocytes 1+ Cheng Cells 1+ PUBS MCHC (33.0 - 37.0 G/DL) 32.8 L Last 24 Hours of Ismael Results: Blood cultures August 03 remain negative Assessment/Plan Impression: Overall stable off antibiotics with temperatures remaining normal and with a continued increase in his white blood cell count and platelet counts, though his H&H have decreased. The etiology of his low counts remains unclear, with possible etiologies including a tickborne illness, such as Anaplasma or Babesia, or vitamin B12 deficiency. The hives may be secondary to the Atovaquone, which has been discontinued, or perhaps to the Vitamin B12. Suggestion: 1. Follow-up PCR for Anaplasma and Babesia 2. Further management of his hives per Medicine 3. Continue to follow off antibiotics pending above
[2016-08-06 14:42] VITALS: BP 106/60
[2016-08-06 22:03] VITALS: BP 122/68
[2016-08-07 06:53] VITALS: BP 114/80
--- NOTE | 2016-08-07 07:09 | PN- Housestaff ---
CATHERINE AL,BRYANT 08/07/16 0708: Subjective Follow-up For: Leukopenia Thrombocytopenia Possible Tick borne illness Subjective: Patient seen and examined. He is seen sitting upright in bed resting comfortably. He appears to be in no acute distress. He reports sleeping well last night, but does commment that he had "the sweats" and subjective fever. He does have a persistent cough. He rash and lip swelling have completely resolved. Otherwise he feels fine and has no new subjective complaints. Additionally he denies any chills, headache, chest pain, shortness of breath, nausea, vomiting, diarrhea. No overnight events reported. Review of Systems Constitutional: Reports: see HPI. Objective Last 24 Hrs of Vital Signs/I&O Vital Signs Date Time Temp Pulse Resp B/P B/P Pulse O2 O2 Flow FiO2 Mean Ox Delivery Rate 08/07 0653 97.7 70 20 114/80 96 Room Air 08/06 2203 97.8 64 20 122/68 96 Room Air 08/06 1442 97.7 62 18 106/60 96 Room Air Intake & Output 08/07 0800 08/07 0000 08/06 1600 Intake Total 2280 Output Total 1100 Balance 1180 Intake, IV 0 Intake, Oral 2280 Number 0 Bowel Movements Output, Urine 1100 Physical Exam General Appearance: Alert, Oriented X3, Cooperative, No Acute Distress Other Physical Findings: General - well developed, well nourished obese middle aged man in no acute distress HEENT - NCAT, PERRL, EOMI, anicteric sclera, nasal cannula in place, right sided lip swelling CVS - S1, S2 w/o m/g/r Resp - CTA bilatearlly, audible nonproductive cough with deep inspiration GI - soft, obese, nontender, nondistended, bowel sounds intact Neuro - Awake and alert, CN II - XII grossly intact Ext - normal pulses, no cyanosis/clubbing/edema Skin - no rashes, bruising or blemishes Current Medications: Current Medications Sig/Hedy Start time Last Medication Dose Route Stop Time Status Admin Acetaminophen 500 MG Q6P PRN 08/04 1330 AC PO Cyanocobalamin 1,000 MCG DAILY 08/04 1322 AC 08/06 PO 0904 Diphenhydramine HCl 25 MG Q6P PRN 08/06 1200 AC PO Diphenhydramine HCl 25 MG Q2 HRS NEEDED PRN 08/06 0330 DC 08/06 IV 0906 Famotidine 20 MG DAILY 08/06 1000 AC 08/06 PO 1119 Guaifenesin 10 ML Q6P PRN 08/03 2200 AC 08/06 PO 0334 Insulin Aspart 0 TIDAC 08/04 1200 AC 08/06 SC 1723 Insulin Detemir 3 UNITS BID 08/03 2200 AC 08/06 SC 2110 Methylprednisolone 125 MG ONCE ONE 08/06 0845 DC 08/06 IV 08/06 0846 1119 Morphine Sulfate 2 MG Q4P PRN 08/03 1330 AC IV Ondansetron HCl 4 MG Q6P PRN 08/03 1330 AC IV Oxycodone HCl 5 MG Q6P PRN 08/04 1330 AC 08/05 PO 2155 Potassium Chloride 40 MEQ ONCE ONE 08/06 0830 DC 08/06 PO 08/06 0831 1119 Last 24 Hrs of Lab/Ismael Results Last 24 Hrs of Labs/Mics: Laboratory Tests 08/07/16 0615: CBC w Diff Pending, WBC Pending, RBC Pending, Hgb Pending, Hct Pending, MCV Pending, MCH Pending, RDW Pending, Plt Count Pending, MPV Pending, PUBS MCHC Pending Assessment/Plan Assessment: 56 year old man with past medical history of Klinefelters, hypothyroidism, and diabetes mellitus seen for evaluation of "feeling sick" with nausea/vomiting/ diarrhea and associated fever/chills for one week. Hospital Day 5 Patient reports that he is doing well and states that his rash/itching have completely resolved with the addition of steroids. He does however still endorse intermittent subjective fevers and a persistent cough. He is to be discharged to home with instruction to follow up with Dr. Jordan for further evaluation of his B12 deficiency, elevated Lipid levels, and follow up for his pending multiple PCR lab studies. He is to continue taking B12 supplements daily and benadryl as needed should his rash return. He may require additional antibiotic treatment as outpatient should his lab studies return positive. CBC today demonstrated improved in his white blood cells level, most likely due to the steroids he received yesterday. Platelets also improved. Leukopenia/Thrombocytopenia/Transaminitis/Acute Kidney Injury Given patients mutliple vague complaints and findings of leukopenia, thrombocytopenia, and hepatic/renal function derangements its possible patient has a tick borne illness such as babesiosis, but other coinfections such as anaplasmosis or viral infection should be considered. Patient received two days worth of Azithromycin/Atovaqone for suspicion of babesiosis, however was discontinued off of them as he developed a pruitic rash. -General Medicine -Guaifenesin 10mL PO Q6H PRN Cough -Zofran 4mg IV Q6H PRN Nausea -Infectious Disease Consult -Heme/Onc Consult -Daily CBC/BEP Elevated LDH/D-Dimer Low modified well's score for PE. Patient does have have new nonproductive cough. Bilateral LE US did not identify any deep venous thrombosis. This may be secondary to a hemolytic process due to now clinically apparent babesiosis; however B12 deficiency may have also caused this. -Consider CTA when creatinine improves B-12 Deficiency -B12 1,000mcg IM ONCE -B12 1,000mcg PO Daily Diabetes Mellitus -Accuchecks TIDAC/HS -Hold oral hypoglycemics -Novolog SSI -Levemir 3U SC BID -Diabetic Diet Pain plan-Acetaminophen/Oxycodone Diet-Diabetic Diet DVT PPx-ALPS Code Status-FULL CODE Problem List: 1. Leukopenia 2. Thrombocytopenia Pain Ratin Pain Location: None Pain Goal: Remain pain free Pain Plan: See assessment Tomorrow's Labs & Rationales: None LJ NICK MD 08/07/16 1145: Attending MD Review Statement Attending Statement Attending MD Statement: examined this patient, discuss w/resident/PA/GAME DESIGNER, agreed w/resident/PA/GAME DESIGNER, discussed with family, reviewed EMR data (avail), discussed with nursing, discussed with case mgmt, reviewed images Attending Assessment/Plan: Patient is doing very well today. He is eager to go home. No more urticaria and his angioedema and hoarseness has resolved. His counts are all high but that could be the 125 mg of Solu-Medrol he got yesterday for the allergic reaction. I spoke to his and him at length and explained our initial diagnosis of suspected anaplasmosis versus suspected babesiosis for the pancytopenia. Also explained the B12 deficiency. The plan is that he is going to leave today on oral B12 with the plan to repeat the CBC on Friday and the results being sent to . He is going to temporally hold his statin for a week or so until we know that his transaminitis is completely resolved.
[2016-08-07] MEDS ORDERED: VITAMIN B-121000 MC3 PO (07:12)
--- NOTE | 2016-08-07 07:16 | Patient Discharge Instructions ---
Discharge Instructions General Discharge Information Special Instructions: Follow up with your primary care provider within two weeks of discharge for further evaluation of your B12 deficiency, you may require further injections. Take Vitamin B12 1,000 units one tablet by mouth daily. Obtain repeat lab studies on Friday08/12/16. Follow up with Dr. Jordan for the results. Discuss your high lipid levels with your primary care provider, your medication regimen may need to be adjusted. Do not take Crestor for one week, resume this medicaiton on 08/14/16. Ask about the test results pending here in the hospital: Anaplasma , Babesia, Ehrlichia PCR. You may require addition treatment if these return positive. Acute Coronary Syndrome Inclusion Criteria At DC or during hospital stay patient has or had the following: ACS DIAGNOSIS No Discharge Core Measures Meds if any: Prescribed or Continued at Discharge Meds if any: NOT Prescribed or Continued at Discharge Congestive Heart Failure Inclusion Criteria At DC or during hospital stay patient has or had the following: CHF DIAGNOSIS No Discharge Core Measures Meds if any: Prescribed or Continued at Discharge Meds if any: NOT Prescribed or Continued at Discharge Cerebrovascular accident Inclusion Criteria At DC or during hospital stay patient has or had the following: CVA/TIA Diagnosis No Discharge Core Measures Meds if any: Prescribed or Continued at Discharge Meds if any: NOT Prescribed or Continued at Discharge Venous thromboembolism Inclusion Criteria VTE Diagnosis No VTE Type NONE VTE Confirmed by (Test) NONE Discharge Core Measures - Per Current guidelines, there needs to be overlap - treatment for the first 5 days of Warfarin therapy. - If discharged on Warfarin prior to 5 days of - overlap therapy, the patient will need to be - assessed for post discharge needs including - *Post discharge parental anticoagulation - *Warfarin and/or parental anticoagulation education - *Follow up date to check INR post discharge At least 5 days overlap therapy as Inpatient No Meds if any: Prescribed or Continued at Discharge Note: Overlap Therapy is Warfarin and Anticoagulant Meds if any: NOT Prescribed or Continued at Discharge
--- NOTE | 2016-08-07 07:56 | PN- Hematology ---
Subjective Subjective: He had worsening hives and lip edema yesterday. He was given a dose of steroid. He has new symptoms this morning. Hive is resolved. Lip swelling is improved. He has no changes in his voice. He has no shortness of breath. He has no pain. Review of Systems Constitutional: Denies: chills, fever. Cardiovascular: Denies: chest pain. Gastrointestinal: Denies: abdominal pain. Genitourinary: Denies: dysuria. Skin: Denies: rash. All Other Systems: Reviewed and Negative Objective Vital Signs and I&Os Vital Signs Date Time Temp Pulse Resp B/P B/P Pulse O2 O2 Flow FiO2 Mean Ox Delivery Rate 08/07 0653 97.7 70 20 114/80 96 Room Air 08/06 2203 97.8 64 20 122/68 96 Room Air 08/06 1442 97.7 62 18 106/60 96 Room Air Intake & Output 08/07 0800 08/07 0000 08/06 1600 08/06 0800 08/06 0000 08/05 1600 Intake Total 2280 800 800 Output Total 1100 500 300 400 Balance 1180 -500 500 400 Intake, IV 0 Intake, Oral 2280 800 800 Number 0 0 Bowel Movements Output, Urine 1100 500 300 400 Physical Exam General Appearance: alert, awake, comfortable Head: atraumatic Ears, Nose, Throat: normal pharynx, right lower lip with slight swelling Respiratory: normal breath sounds, chest non-tender, no respiratory distress Cardiovascular: regular rate/rhythm Abdomen: normal bowel sounds, soft, non-tender, obese Extremities: no edema Skin: one area of erythema in the LLQ of abdomen Current Medications: Current Medications Sig/Hedy Start time Last Medication Dose Route Stop Time Status Admin Acetaminophen 500 MG Q6P PRN 08/04 1330 AC PO Cyanocobalamin 1,000 MCG DAILY 08/04 1322 AC 08/06 PO 0904 Diphenhydramine HCl 25 MG Q6P PRN 08/06 1200 AC PO Diphenhydramine HCl 25 MG Q2 HRS NEEDED PRN 08/06 0330 DC 08/06 IV 0906 Famotidine 20 MG DAILY 08/06 1000 AC 08/06 PO 1119 Guaifenesin 10 ML Q6P PRN 08/03 2200 AC 08/06 PO 0334 Insulin Aspart 0 TIDAC 08/04 1200 AC 08/06 SC 1723 Insulin Detemir 3 UNITS BID 08/03 2200 AC 08/06 SC 2110 Methylprednisolone 125 MG ONCE ONE 08/06 0845 DC 08/06 IV 08/06 0846 1119 Morphine Sulfate 2 MG Q4P PRN 08/03 1330 AC IV Ondansetron HCl 4 MG Q6P PRN 08/03 1330 AC IV Oxycodone HCl 5 MG Q6P PRN 08/04 1330 AC 08/05 PO 2155 Potassium Chloride 40 MEQ ONCE ONE 08/06 0830 DC 08/06 PO 08/06 0831 1119 Results Last 24 Hours of Lab Results: Laboratory Tests 08/07 0615 Hematology CBC w Diff Pending WBC Pending RBC Pending Hgb Pending Hct Pending MCV Pending MCH Pending RDW Pending Plt Count Pending MPV Pending PUBS MCHC Pending Assessment/Plan Assessment/Recommendations: Mr. Ridley is a 56-year-old male with Klinefelter's syndrome, hypogonadism, and HLD who presented with feeling unwell. He was noted to have leukopenia and thrombocytopenia. LDH was noted to be elevated along with the ferritin. Vitamin B12 level was low. His bilirubin is normal. Previous blood work has been normal. He did have a flow cytometry in 2014 which was normal. Blood work has demonstrated resolution of leukopenia and improved thrombocytopenia. Blood work is pending today. His allergic reaction is also improved with steroid and famotidine. Etiology is unclear at the moment but likely related to antibiotics or vitamin B12 as these are the only new medications for the patient. He will be monitored closely. 1. follow up babesia, ehrlichia, and anaplasma pcr 2. continue vitamin B12 supplementation 3. monitor for recurrent hives 4. monitor CBC Please call [phone] with any questions or concerns. Problem List: 1. Klinefelter syndrome 2. Thrombocytopenia 3. Leukopenia
[2016-08-07 08:05] LABS: ABSOLUTE BASOPHIL COUNT 0 /CUMM (0.0-0.2); ABSOLUTE EOSINOPHIL COUNT 0 /CUMM (0.0-0.7); ABSOLUTE GRANULOCYTE CT 7.3 /CUMM (1.4-6.5); ABSOLUTE LYMPH COUNT 3.9 /CUMM (1.2-3.4); ABSOLUTE MONOCYTE COUNT 0.7 /CUMM (0.10-0.60); BASOPHIL % 0.4 % (0.0-2.0); EOSINOPHIL % 0.2 % (0-5); HEMATOCRIT 35.2 % (42-52); MEAN CORPUSCULAR HGB 25.8 PG (27.0-31.0); MEAN CORPUSCULAR HGB CONC 33.2 G/DL (33.0-37.0); MEAN CORPUSCULAR VOLUME 77.6 FL (80.0-94.0); MEAN PLATELET VOLUME 12.1 FL (7.4-10.4); RBC DISTRIBUTION WIDTH 18.1 % (11.5-14.5); RED BLOOD CELL CT 4.54 /CUMM (4.70-6.10)
[2016-08-07 08:08] LABS: GRANULOCYTE % 60.9 % (42.2-75.2)
[2016-08-07 08:43] LABS: PLATELET COUNT 167 /CUMM (130-400)
--- NOTE | 2016-08-07 09:03 | PN- Student ---
DANNIELLE HEALY 08/07/16 0858: Subjective Subjective: Patient was seen and examined this morning. He was resting comfortably and reports eating a full breakfast. He reported overnight sweats that bothered him to the point of wanting to take a shower. There were no other overnight complaints. He did question his current "liver and kidney status" where I informed him that his tests were looking great and their functions are improving. He is otherwise in great spirits and anxious to go home today. Patient denies any current pain, SOB, chest pain, palpitations, itching, new rashes, diarrhea, constipation, numbness or tingling. Objective Objective: Vital Signs Date Time Temp Pulse Resp B/P B/P Pulse O2 O2 Flow FiO2 Mean Ox Delivery Rate 08/07 0653 97.7 70 20 114/80 96 Room Air 08/06 2203 97.8 64 20 122/68 96 Room Air 08/06 1442 97.7 62 18 106/60 96 Room Air Intake & Output 08/07 0800 08/07 0000 08/06 1600 Intake Total 2280 Output Total 1100 Balance 1180 Intake, IV 0 Intake, Oral 2280 Number 0 Bowel Movements Output, Urine 1100 Physical Exam: General- Well-developed, well-nourished obese male in no acute distress HEENT- NCAT, pupils reactive to light, EOMI Cardio- Normal S1/S2 with no M/G/R Respiratory- Clear lung sounds on auscultation bilaterally, nonproductive cough GI- obese, soft, nontender, nondistended abdomen with bowel sounds in tact Skin - no papules, urticaria, pustules Extremity- normal pulses with no cyanosis or edema Laboratory Tests 08/07 0615 Hematology CBC w Diff MAN DIFF ORDERED WBC (4.8 - 10.8 /CUMM) 12.0 H RBC (4.70 - 6.10 /CUMM) 4.54 L Hgb (14.0 - 18.0 G/DL) 11.7 L Hct (42 - 52 %) 35.2 L MCV (80.0 - 94.0 FL) 77.6 L MCH (27.0 - 31.0 PG) 25.8 L RDW (11.5 - 14.5 %) 18.1 H Plt Count (130 - 400 /CUMM) 167 MPV (7.4 - 10.4 FL) 12.1 H Gran % (42.2 - 75.2 %) 60.9 Lymphocytes % (20.5 - 51.1 %) 32.7 Monocytes % (1.7 - 9.3 %) 5.8 Eosinophils % (0 - 5 %) 0.2 Basophils % (0.0 - 2.0 %) 0.4 Absolute Granulocytes (1.4 - 6.5 /CUMM) 7.3 H Segmented Neutrophils (42.2 - 75.2 %) 57 Band Neutrophils (0.0 - 5.0 %) 5 Absolute Lymphocytes (1.2 - 3.4 /CUMM) 3.9 H Lymphocytes (20.5 - 51.1 %) 31 Monocytes (1.7 - 9.3 %) 6 Absolute Monocytes (0.10 - 0.60 /CUMM) 0.7 H Eosinophils (0 - 5.0 %) 1 Absolute Eosinophils (0.0 - 0.7 /CUMM) 0 Absolute Basophils (0.0 - 0.2 /CUMM) 0 Platelet Estimate (ADEQUATE) VERIFIED BY SMEAR Polychromasia 1+ Poikilocytosis 1+ Anisocytosis 1+ Ovalocytes 1+ Cheng Cells 1+ PUBS MCHC (33.0 - 37.0 G/DL) 33.2 Assessment/Plan Assessment: 56 year old male with a pass medical history of Klinefelters, hypothyroidism, insulin dependent diabetes mellitus seen for evalutation of nausea, vomiting, diarrhea associated with fever and chills for the past 1 week. With today being hospital day 5, patient's CBC levels have been improving and are within normal limits. Patient is to be discharged today with instructions to get blood drawn and to follow-up with PCP. Leukopenia/Thrombocytopenia/Transaminitis/LUCY -PCR results to determine if tick borne illness such as babesiosis, anaplasmosis or other viral infections -Follow up with PCP (Dr. Jordan) to check LFT, CBC, BEP, platelets, lipids -Guaifenisin for cough -Zofran for nausea -Heme/Onc & Infectious disease consult B12 deficiency: Patient will likely need to continue taking B12 supplementation fpc -B12 supplements IM (once) - 1000mcg -B12 supplements PO (daily) - 1000mcg DVT ppx- ALPS Code status- FULL code
--- NOTE | 2016-08-07 12:43 | PN- Infect Dx ---
Subjective Subjective: Afebrile without complaints. His hives have resolved. Objective Last 24 Hrs of Vital Signs/I&O Vital Signs Date Time Temp Pulse Resp B/P B/P Pulse O2 O2 Flow FiO2 Mean Ox Delivery Rate 08/07 0553 97.7 70 20 114/80 96 Room Air 08/06 2203 97.8 64 20 122/68 96 Room Air 08/06 1442 97.7 62 18 106/60 96 Room Air Physical Exam Other Physical Findings: He appears comfortable in no acute distress Skin no further hives The remainder of his exam is unchanged Results Last 24 Hours of Lab Results: Laboratory Tests 08/07 614 Hematology CBC w Diff MAN DIFF ORDERED WBC (4.8 - 10.8 /CUMM) 12.0 H RBC (4.70 - 6.10 /CUMM) 4.54 L Hgb (14.0 - 18.0 G/DL) 11.7 L Hct (42 - 52 %) 35.2 L MCV (80.0 - 94.0 FL) 77.6 L MCH (27.0 - 31.0 PG) 25.8 L RDW (11.5 - 14.5 %) 18.1 H Plt Count (130 - 400 /CUMM) 167 MPV (7.4 - 10.4 FL) 12.1 H Gran % (42.2 - 75.2 %) 60.9 Lymphocytes % (20.5 - 51.1 %) 32.7 Monocytes % (1.7 - 9.3 %) 5.8 Eosinophils % (0 - 5 %) 0.2 Basophils % (0.0 - 2.0 %) 0.4 Absolute Granulocytes (1.4 - 6.5 /CUMM) 7.3 H Segmented Neutrophils (42.2 - 75.2 %) 57 Band Neutrophils (0.0 - 5.0 %) 5 Absolute Lymphocytes (1.2 - 3.4 /CUMM) 3.9 H Lymphocytes (20.5 - 51.1 %) 31 Monocytes (1.7 - 9.3 %) 6 Absolute Monocytes (0.10 - 0.60 /CUMM) 0.7 H Eosinophils (0 - 5.0 %) 1 Absolute Eosinophils (0.0 - 0.7 /CUMM) 0 Absolute Basophils (0.0 - 0.2 /CUMM) 0 Platelet Estimate (ADEQUATE) VERIFIED BY SMEAR Polychromasia 1+ Poikilocytosis 1+ Anisocytosis 1+ Ovalocytes 1+ Cheng Cells 1+ PUBS MCHC (33.0 - 37.0 G/DL) 33.2 Last 24 Hours of Ismael Results: Blood cultures August 03 remain negative Assessment/Plan Impression: Remains stable off antibiotics with temperatures remaining normal and with a continued increase in his white blood cell count and platelet counts. His increased white blood cell count today may be in part secondary to the steroids, begun for the hives which were most likely medication related. Suggestion: 1. Follow-up PCR for Anaplasma and Babesia 2. Continue to follow off antibiotics
--- NOTE | 2016-08-10 05:49 | Discharge Summary ---
Visit Information Visit Dates Admission Date: 08/03/16 Discharge Date: 08/07/16 Hospital Course Course Attending Physician: PARK AL,LJ Barraza Primary Care Physician: JOSE AGRAWAL MD Consulting Request: 1 Consulting Specialty: Hematology/Oncology Consulting Request: 2 Consulting Specialty: Infectious Disease Hospital Course: 56 year old man with a past medical history of Klinefelter's Syndrome, IDDM, and hypothyroidism seen for evaluation of 'feeling sick' with nausea, vomiting, diarrhea, nonproductive cough and associated fever/chills over the week prior to evaluation. He denies any recent sick contacts, travel/camping history. ED Course: -Vitals: Temp 96.6-99.6, HR 109-130, RR 18, BP 117-138/72-73, O2 93-95% on Room Air -Significant Labs: WBC 2.7, Hgb/Hct 14.7/44.5, Plt 28, Na 133, BUN/Cr 23/1.3, T. Yuri 1.5, AST/ALT 105/91, ALK 70, 32 Bands, UA: Protein 100 Small Hemoglobin, D- Dimer >5250, Fibrin Degradation products >40, CRP >9.0, H-CRP >15.0 -Studies: Rapid flu negative, CT Abd/Pelvis mild splenomegaly, CXR negative -Interventions: NaCl 1L Leukopenia / Thrombocytopenia / Transaminitis / Low Grade DIC Patient was admitted to the general medicine floor and empirically started on atovaquone/azithromycin as his elevated LDH and low grade DIC were initially thought to be a hemolytic process secondary to Babesiosis. His other symptoms of leukopenia/thrombocytopenia were thought to be possibly secondary to a concurrent anaplasmosis, however patient did not have any objective fever. Peripheral smear was negative for any obvious tiago crosses/morulae. Patient was continued on the atovaquone/azithromycin for two hospital days with serial blood draws that demonstrated interval improvement of his multiple lab derangements. Infectious Disease and Hematology/Oncology consults were placed and Babesia/Anaplasma/Ehrlichia PCR lab studies were sent. Patient developed a diffuse erythematous/pruritic rash on his low back/abdomen after two days on the antibiotic therapy and was discontinued from this regimen as a rash is a known adverse reaction, especially of the Atovaqone. Rash was spreading up patients trunk after discontinuation possibly due to the drugs half life of several days, he was given intravenous solumedrol when his lips became grossly swollen. Complete blood count demontrated normalization of his blood cell lines on day of discharge. PCR for various ticks are pending, patient will need to follow up with his primary care provider for further evaluation and possible further treatment with antibiotics such as doxycycline pending this results. He is to get repeat blood work this Friday08/12/16. B12 Deficiency Patients B12 was found to be low (216) and may have contributed to his elevated LDH. He was given 1,000 units of intramuscular cyanocobalamin and started on an equivalent dose of oral supplementation. This will require outpatient monitoring by patients primary care provider. Transaminitis Patient had mildly elevated liver enzymes upon initial evaluation possible secondary to the agent causing the multiple abnormalities as discussed above. Patient has a history of hypertriglyceridemia and is maintained on crestor for this. Crestor was held during the hospitalization and for one week after discharge. Patient will follow up with his PCP for these findings; triglyerides found to be 370. Allergies: Coded Allergies: atovaquone (Intermediate, DIFFUSE RASH WITH LIP SWELLING 08/07/16) Significant Procedures: SERVICE DATE: 08/03/16 EXAM TYPE: CAT - CT ABD & PELVIS W/O IV CONTRAS IMPRESSION: 1. No acute imaging abnormalities within the abdomen or pelvis. 2. Mild hepatosplenomegaly is observed in this obese patient. There are no focal hepatic or splenic lesions on this noncontrast exam. Liver has an attenuation of approximally 40 Hounsfield units (i.e., borderline steatosis). 3. Status post cholecystectomy. SERVICE DATE: 08/03/16 EXAM TYPE: RAD - XRY-PORTABLE CHEST XRAY IMPRESSION: No evidence of pneumonia. SERVICE DATE: 08/04/16- EXAM TYPE: US - US-EXT BILAT VENOUS DOPPLER IMPRESSION: No evidence of deep vein thrombosis in either lower extremity. 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 Take Vitamin B12 1,000 units one tablet by mouth daily. Obtain repeat lab studies on Friday08/12/16. Follow up with Dr. Agrawal for the results. Discuss your high lipid levels with your primary care provider, your medication regimen may need to be adjusted. Do not take Crestor for one week, resume this medicaiton on 08/14/16. Ask about the test results pending here in the hospital: Anaplasma , Babesia, Ehrlichia PCR. You may require addition treatment if these return positive. Medications at Discharge Discharge Medications: Stop taking the following medications: Rosuvastatin Calcium (Crestor) 40 MG TABLET ORAL DAILY Qty = 90 Continue taking these medications: Testosterone Cypionate (Testosterone Cypionate) 200 MG/1 ML VIAL 1 Milliliters INTRAMUSC EVERY 2 WEEKS Comments: NOT GIVEN IN HOSPITAL Cholecalciferol (Vitamin D3) (Vitamin D) 1,000 UNIT TABLET 1 Tablet ORAL DAILY Comments: NOT GIVEN IN HOSPITAL Metformin HCl (Metformin HCl) 1,000 MG TABLET 1 Tablet ORAL 0800,1700 Days = 30 Comments: NOT GIVEN IN HOSPITAL INSULIN NOVOLOG GIVEN PER SLIDING SCALE Levothyroxine Sodium (Levothyroxine Sodium) 175 MCG TABLET 1 Tablet ORAL DAILY Qty = 90 Comments: NOT GIVEN IN HOSPITAL Insulin Detemir (Levemir Flextouch) 100 UNIT/ML (3 ML) INSULN.PEN 6 Units Inject into fatty tissue Every Morning Qty = 15 Comments: Last Taken: 08/07/16 Time: 0850 AM Dulaglutide (Trulicity) 0.75 MG/0.5 ML PEN.INJCTR 1.2 Units Inject into fatty tissue DAILY Qty = 2 Comments: NOT GIVEN IN HOSPITAL Aspirin (Ecotrin*) 81 MG TABLET.DR 1 Tablet ORAL DAILY Comments: NOT GIVEN IN HOSPITAL Start taking the following new medications: Cyanocobalamin (Vitamin B-12) 1,000 MCG TABLET 1,000 Microgram ORAL DAILY Qty = 30 No Refills Comments: Last Taken: 08/07/16 Time: 1100 AM Copies To: NGHIA AL,JOSE; MARGE AL,EVA; LILIA AL,GEM Blue
== END 2016-08-07 11:19 | DRG 869 ==
LOC: ERH 06:04 → ERHI 13:03 → 2NB 13:03 → ENRESERV 14:04 → 2NB 17:58 → ENPENDDIS 08-07 10:57 → 2NB 08-07 11:19
PROVIDERS: Emergency Medicine; Internal Medicine Hematology & Oncology; Internal Medicine Interventional Cardiology; ADMIT Internal Medicine
DX: A77.49 Other ehrlichiosis (principal); D69.6 Thrombocytopenia, unspecified; D72.819 Decreased white blood cell count, unspecified; E03.9 Hypothyroidism, unspecified; E11.9 Type 2 diabetes mellitus without complications; E53.8 Deficiency of other specified B group vitamins; Q98.4 Klinefelter syndrome, unspecified; Z79.4 Long term (current) use of insulin; E78.1 Pure hyperglyceridemia
CPT/HCPCS: 2NASP; 86618; 87798; 36415; 74176; 81001; 82436; 83010; 87040; 87070; 87389; 87804; 87804-59; 93005; 93010; 93970; 99291; J0456; J1200; J1815; J2405; J2930; J3420; J7042

== ENCOUNTER 2016-08-15 21:43 | Emergency (ER) | payer OTHER ==
[~2016-08-15] VITALS: Ht 188 cm; Wt 113.4 kg
[~2016-08-15 21:43] MED LIST changes: +VITAMIN B-121000 MC3 PO
[2016-08-15 21:52] VITALS: BP 123/76
[2016-08-15 23:13] LABS: ABSOLUTE BASOPHIL COUNT 0.1 /CUMM (0.0-0.2); ABSOLUTE EOSINOPHIL COUNT 0.1 /CUMM (0.0-0.7); ABSOLUTE GRANULOCYTE CT 4.1 /CUMM (1.4-6.5); ABSOLUTE LYMPH COUNT 3.2 /CUMM (1.2-3.4); ABSOLUTE MONOCYTE COUNT 0.7 /CUMM (0.10-0.60); BASOPHIL % 0.8 % (0.0-2.0); EOSINOPHIL % 1.7 % (0-5); GRANULOCYTE % 49.8 % (42.2-75.2); HEMATOCRIT 36.8 % (42-52); MEAN CORPUSCULAR HGB 25.9 PG (27.0-31.0); MEAN CORPUSCULAR HGB CONC 32.5 G/DL (33.0-37.0); MEAN CORPUSCULAR VOLUME 79.6 FL (80.0-94.0); MEAN PLATELET VOLUME 8.7 FL (7.4-10.4); PLATELET COUNT 374 /CUMM (130-400); RBC DISTRIBUTION WIDTH 18.9 % (11.5-14.5); RED BLOOD CELL CT 4.62 /CUMM (4.70-6.10); WHITE BLOOD CELL COUNT 8.1 /CUMM (4.8-10.8)
--- NOTE | 2016-08-16 00:09 | ED GENERAL ADULT ---
History of Present Illness General Chief Complaint: General Adult Stated Complaint: PT IS HAVING PAIN LT SHOULDER AND BACK PAIN Source: patient, family, old records Exam Limitations: no limitations Vital Signs & Intake/Output Vital Signs & Intake/Output Vital Signs Date Time Temp Pulse Resp B/P B/P Pulse O2 O2 Flow FiO2 Mean Ox Delivery Rate 08/15 2218 Room Air 08/15 2217 Room Air 08/16 2151 96.5 86 18 123/76 97 Room Air ED Intake and Output 08/16 0000 08/15 1200 Intake Total Output Total Balance Patient 250 lb Weight Weight Reported by Patient Measurement Method Allergies Coded Allergies: atovaquone (Intermediate, DIFFUSE RASH WITH LIP SWELLING 08/07/16) Reconcile Medications Aspirin (Ecotrin*) 81 MG TABLET.DR 1 TAB PO DAILY HEART/BLOOD (Reported) Cholecalciferol (Vitamin D3) (Vitamin D) 1,000 UNIT TABLET 1 TAB PO DAILY SUPPLEMENT (Reported) Cyanocobalamin (Vitamin B-12) 1,000 MCG TABLET 1,000 MCG PO DAILY b12 deficiency Dulaglutide (Trulicity) 0.75 MG/0.5 ML PEN.INJCTR 1.2 UNITS SC DAILY Diabetes (Reported) Insulin Detemir (Levemir Flextouch) 100 UNIT/ML (3 ML) INSULN.PEN 6 UNITS SC QAM DM (Reported) Levothyroxine Sodium 175 MCG TABLET 1 TAB PO DAILY THYROID (Reported) Metformin HCl 1,000 MG TABLET 1 TAB PO 0800,1700 Diabetes Oxycodone HCl/Acetaminophen (Percocet 5-325 MG Tablet) 5 MG-325 MG TABLET 1-2 TAB PO Q6P PRN PAIN Testosterone Cypionate 200 MG/1 ML VIAL 1 ML IM Q2W HRT (Reported) Triage Note: PT TO TRIAGE WITH C/O RUE PAIN 9/10 STARTED A WEEK AGO, AND BILAT FLANK PAIN 9/10 STARTED 2 DAYS AGO, PT WAS ADMITTED TO [facility] 2 WEEKS AGO FOR ANPLASMOSIS, AND WAS DC ON 08/08. PT DENIES URINARY S/S,DENIES CHEST PAIN,SOB. VSS. Triage Nurses Notes Reviewed? yes Onset: Abrupt Duration: day(s):, constant, continues in ED Timing: recent history Injury Environment: home No Modifying Factors: none HPI: 56-year-old male comes into emergency room with multiple complaints. His primary complaint tonight is low back pain with some right arm pain. Pain is worse with range of motion. His been going on for the past couple days. Patient was recently discharged here from the hospital. He was treated for possible tickborne disease. He was given IV antibiotics and then had an allergic reaction was discontinued on him. His outpatient blood work for anaplasmosis came back positive and he was started on doxycycline yesterday. He reports he has some muscle aches in his low back and some pain in his right arm. He is having some lower abdominal pain issues for the last couple weeks. He had a CAT scan here which showed nothing acute. Patient also reports that on the time he has some intermittent chest pain but denies any chest pain currently. (TYRONE MARIANO) Past History Travel History Traveled to [place] past 21 day No Medical History Any Pertinent Medical History? see below for history Neurological: NONE EENT: NONE Cardiovascular: NONE Respiratory: NONE Gastrointestinal: status post polypectomy Hepatic: NONE Renal: NONE Psychiatric: NONE Endocrine: diabetes, hypothyroidism Blood Disorders: NONE Cancer(s): NONE PELOTA MAKER/Reproductive: NONE Other Medical Hx: Klinefelter's syndrome History of MRSA: No History of VRE: No History of CDIFF: No Influenza Vaccine: 02/13/16 Surgical History Surgical History: cholecystectomy, status post left knee arthroscopy Psychosocial History Who do you live with Spouse Services at Home None What is your primary language [place] Tobacco Use: Never used Family History Family History, If Any: BROTHER FHx: lung cancer MOTHER FHx: lung cancer, Onset: 30-40. FATHER FH: tuberculosis Relation not specified for: FH: breast cancer Hx Contributory? No (TYRONE MARIANO) Review of Systems Review of Systems Constitutional: Reports: no symptoms. EENTM: Reports: no symptoms. Respiratory: Reports: no symptoms. Cardiovascular: Reports: see HPI. GI: Reports: see HPI. Genitourinary: Reports: no symptoms. Musculoskeletal: Reports: see HPI. Skin: Reports: no symptoms. Neurological/Psychological: Reports: no symptoms. Hematologic/Endocrine: Reports: no symptoms. Immunologic/Allergic: Reports: no symptoms. All Other Systems: Reviewed and Negative (TYRONE MARIANO) Physical Exam Physical Exam General Appearance: well developed/nourished, alert, awake Head: atraumatic, normal appearance Eyes: Bilateral: normal appearance, EOMI. Ears, Nose, Throat: normal pharynx, hearing grossly normal Neck: normal inspection, full range of motion Respiratory: normal breath sounds, no respiratory distress Cardiovascular: regular rate/rhythm Back: paraspinal muscle tenderness Extremities: normal inspection, normal range of motion, no edema Neurologic/Psych: awake, alert, oriented x 3, normal gait, normal mood/affect Skin: intact, normal color Core Measures ACS in differential dx? No CVA/TIA Diagnosis: No Severe Sepsis Present: No Septic Shock Present: No (REMBERTO ANTONIO,TYRONE) Progress Differential Diagnoses I considered the following diagnoses in my evaluation of the patient: Plan of Care: Orders Procedure Date/time Status TROPONIN LEVEL 08/15 2237 Complete COMPREHENSIVE METABOLIC PANEL 08/15 2237 Complete CBC WITHOUT DIFFERENTIAL 08/15 2237 Complete EKG 08/15 2237 Active Laboratory Tests 08/15/169: Anion Gap 10, Estimated GFR > 60, BUN/Creatinine Ratio 10.8, Glucose 80, Calcium 9.0, Total Bilirubin 0.8, AST 35, ALT 84 H, Alkaline Phosphatase 59, Troponin I < 0.01, Total Protein 6.7, Albumin 3.9, Globulin 2.8, Albumin/Globulin Ratio 1.4 , CBC w Diff NO MAN DIFF REQ, RBC 4.62 L, MCV 79.6 L, MCH 25.9 L, RDW 18.9 H , MPV 8.7, Gran % 49.8, Lymphocytes % 39.6, Monocytes % 8.1, Eosinophils % 1.7, Basophils % 0.8, Absolute Granulocytes 4.1, Absolute Lymphocytes 3.2, Absolute Monocytes 0.7 H, Absolute Eosinophils 0.1, Absolute Basophils 0.1, PUBS MCHC 32.5 L Initial ED EKG: normal intervals, normal p-waves, normal sinus rhythm, rate (64) Comments: Patient's back pain is reproducible. More consistent with muscular pain. The arm pain is consistent with muscular pain. He currently has no chest pain or shortness of breath. EKG within normal limits. Patient could be expressing myalgias from anaplasmosis or this could be just muscular pain in general. Patient given pain medication. Told to resume doxycycline. Clinically looks well. In no apparent distress. Resting comfortably on stretcher. Return if any other concerns. Follow-up with primary care doctor. case discussed with dr domingo. (TYRONE MARIANO) Departure Departure Disposition: HOME OR SELF CARE Condition: Stable Clinical Impression Primary Impression: Back pain Secondary Impressions: Abdominal pain, Arm pain Referrals: JOSE AGRAWAL MD (PCP/Family) Additional Instructions: Take Percocet as prescribed. Follow-up with your primary care doctor. Return if any concerns worsening symptoms. Please go over all results of today's visit with your primary care doctor. Contact your primary care doctor to let them know you were here in the emergency room. There may be nonspecific findings which may not be related to your visit today here in the emergency room but may require further evaluation and chronic monitoring by your primary care doctor. If you had a laceration today the chance of foreign body always remains. You should follow-up with your primary care doctor for recheck in 3-5 days for a wound check. If you had an x-ray done there is a chance that a fracture could have been missed on initial read and you should follow-up with your primary care doctor for repeat x-rays if symptoms persist. If your blood pressure was elevated here in the emergency room please have rechecked by her primary care doctor within the next 48 hours by your primary care doctor. If you were prescribed a narcotic here in the emergency room or any type of controlled substances you're not allowed to drive while taking this medication or operate any type of heavy machinery. Narcotics can make you feel lightheaded dizziness nausea and can cause constipation. You may need to supervisor opening and picking a stool softener. Thank you for choosing [facility] emergency room. Please return to the emergency room immediately if you have any other concerns worsening of symptoms. Departure Forms: Customer Survey General Discharge Information Prescriptions: Current Visit Scripts Oxycodone HCl/Acetaminophen (Percocet 5-325 MG Tablet) 1-2 TAB PO Q6P PRN PAIN #15 TAB (TYRONE MARIANO) PA/STAMPING PRESS OPERATOR Co-Sign Statement Statement: ED Attending supervision documentation- I saw and evaluated the patient. I have also reviewed all the pertinent lab results and diagnostic results. I agree with the findings and the plan of care as documented in the PA's/STAMPING PRESS OPERATOR's documentation. x I have reviewed the ED Record and agree with the PA's/STAMPING PRESS OPERATOR's documentation. [] Additions or exceptions (if any) to the PAs/STAMPING PRESS OPERATOR's note and plan are summarized below: [] (SYLVIA AL,QUETA) Critical Care Note Critical Care Note Critical Care Time: non-applicable (REMBERTO ANTONIO,TYRONE)
[2016-08-16] MEDS ORDERED: PERCOCET 5-3251 EACH PO (00:14)
== END 2016-08-16 00:37 ==
LOC: ERH 21:43
PROVIDERS: Physician Assistant Medical
DX: M54.5 Low back pain (principal); M79.601 Pain in right arm; R10.30 Lower abdominal pain, unspecified
CPT/HCPCS: 93005; 93010

== ENCOUNTER → 2018-01-09 | Emergency (ER) | payer OTHER ==
[~2018-01-09] VITALS: Ht 188 cm; Wt 113.4 kg
[~2018-01-09] MED LIST changes: +PERCOCET 5-3251 EACH PO
[2018-01-09 18:58] VITALS: BP 110/72
[2018-01-09 19:54] LABS: ABSOLUTE BASOPHIL COUNT 0 /CUMM (0.0-0.2); ABSOLUTE EOSINOPHIL COUNT 0.3 /CUMM (0.0-0.7); ABSOLUTE GRANULOCYTE CT 5.4 /CUMM (1.4-6.5); ABSOLUTE LYMPH COUNT 3.2 /CUMM (1.2-3.4); ABSOLUTE MONOCYTE COUNT 0.5 /CUMM (0.10-0.60); BASOPHIL % 0.4 % (0.0-2.0); EOSINOPHIL % 2.9 % (0-5); GRANULOCYTE % 57.1 % (42.2-75.2); HEMATOCRIT 40.5 % (42-52); MEAN CORPUSCULAR HGB 27.3 PG (27.0-31.0); MEAN CORPUSCULAR HGB CONC 32.8 G/DL (33.0-37.0); MEAN CORPUSCULAR VOLUME 83.2 FL (80.0-94.0); MEAN PLATELET VOLUME 8.4 FL (7.4-10.4); PLATELET COUNT 232 /CUMM (130-400); RBC DISTRIBUTION WIDTH 17.1 % (11.5-14.5); RED BLOOD CELL CT 4.87 /CUMM (4.70-6.10); WHITE BLOOD CELL COUNT 9.5 /CUMM (4.8-10.8)
--- NOTE | 2018-01-09 21:40 | CT SCAN REPORT ---
EXAMINATION: CT ABDOMEN AND PELVIS WITHOUT CONTRAST CLINICAL INFORMATION: Left lower quadrant pain. Diverticulitis. COMPARISON: CT scan abdomen pelvis 08/03/2016 TECHNIQUE: Multidetector volumetric imaging was performed from the superior aspect of the liver through the pubic symphysis. Sagittal and coronal reformatted images were obtained on the technologist's workstation. DLP: 1295.82 mGy-cm FINDINGS: LUNG BASES: The visualized lung bases are unremarkable. LIVER, GALLBLADDER, AND BILIARY TREE: The liver is normal in size, shape, and attenuation. No focal hepatic lesion or biliary ductal dilatation is present. Right lobe liver measures 17 cm superior inferior. Status post cholecystectomy. PANCREAS: Unremarkable. SPLEEN: Unremarkable. Spleen measures 10.5 cm superior inferior. ADRENAL GLANDS: Unremarkable. KIDNEYS AND URETERS: The kidneys are normal in size, shape, and attenuation. No hydronephrosis, hydroureter, or calculi seen. No perinephric stranding. BLADDER: Unremarkable. GASTROINTESTINAL TRACT: There is mild diverticulosis of left kidney and sigmoid with a few scattered diverticula in the right colon. There is no diverticulitis. There is no acute abnormality of the bowel. There is no bowel obstruction. There is no bowel wall thickening or edema. There is a moderate volume of scattered stool throughout the colon. The appendix is normal. The small bowel loops are normal. ABDOMINAL WALL: No significant hernia is appreciated. LYMPH NODES: Normal. VASCULAR: Unremarkable. PELVIC VISCERA: Unremarkable. OSSEOUS STRUCTURES: Unremarkable. IMPRESSION: No acute abnormality of the abdomen or the pelvis. There is diverticulosis of the colon but no diverticulitis. No acute abnormality of the bowel.
--- NOTE | 2018-01-09 21:44 | RADIOLOGY REPORT ---
EXAMINATION: XR CHEST CLINICAL INFORMATION: Cough, fever COMPARISON: Chest x-ray 08/03/2016. CT scan from the same day. TECHNIQUE: 2 views of the chest were obtained. FINDINGS: Lungs are clear. No focal consolidation or mass. Normal pulmonary vascularity. No pleural effusion or pneumothorax. Normal heart size. There are degenerative changes of the thoracic spine. IMPRESSION: No acute pulmonary disease.
--- NOTE | 2018-01-09 22:19 | ED GI/GU/ABDOMINAL COMPLAINT ---
History of Present Illness General Chief Complaint: General Adult Stated Complaint: "MY DOCTOR SENT ME" Source: patient Exam Limitations: no limitations Vital Signs & Intake/Output Vital Signs & Intake/Output Vital Signs Date Time Temp Pulse Resp B/P B/P Pulse O2 O2 Flow FiO2 Mean Ox Delivery Rate 01/09 1858 98.0 67 18 110/72 99 Room Air ED Intake and Output 01/10 0000 01/09 1200 Intake Total Output Total Balance Patient 250 lb Weight Allergies Coded Allergies: atovaquone (Intermediate, DIFFUSE RASH WITH LIP SWELLING 08/07/16) Reconcile Medications Aspirin (Ecotrin*) 81 MG TABLET.DR 1 TAB PO DAILY HEART/BLOOD (Reported) Cholecalciferol (Vitamin D3) (Vitamin D) 1,000 UNIT TABLET 1 TAB PO DAILY SUPPLEMENT (Reported) Cyanocobalamin (Vitamin B-12) 1,000 MCG TABLET 1,000 MCG PO DAILY b12 deficiency Dulaglutide (Trulicity) 0.75 MG/0.5 ML PEN.INJCTR 1.2 UNITS SC DAILY Diabetes (Reported) Insulin Detemir (Levemir Flextouch) 100 UNIT/ML (3 ML) INSULN.PEN 6 UNITS SC QAM DM (Reported) Levothyroxine Sodium 175 MCG TABLET 1 TAB PO DAILY THYROID (Reported) Metformin HCl 1,000 MG TABLET 1 TAB PO 0800,1700 Diabetes Oxycodone HCl/Acetaminophen (Percocet 5-325 MG Tablet) 5 MG-325 MG TABLET 1-2 TAB PO Q6P PRN PAIN Testosterone Cypionate 200 MG/1 ML VIAL 1 ML IM Q2W HRT (Reported) Triage Note: [address] FOR "SUGAR HIGH" STATES HIS ACCUCHECK WAS 450 AT HOME AND HE IS NORMALLY 100. STATES HE FEELS LIKE HE CAME DOWN WITH SOMETHING THE LAST DAY OR TWO WITH CHILLS AND SUBJECTIVE FEVERS. POOR APPETITE AND POLYURIA. AAOX3. ACCUCHECK 79 IN TRIAGE Triage Nurses Notes Reviewed? yes Onset: Abrupt Duration: day(s): (1-2), changing over time, continues in ED Timing: single episode today Quality/Severity: cramping Severity Numbers: 3 Location: left flank, left lower quadrant Radiation: no radiation Activities at Onset: none Prior Abdominal Problems: none Past Sexual History: Unobtainable at this time HPI: 57-year-old male past medical history of hypothyroidism and non-insulin- dependent diabetes since her evaluation of abdominal pain and chills and hyperglycemia. Patient reports past couple days he has had chills cough congestion and some left-sided abdominal pain. Patient reports that today he noted that his sugars were 450. He called his doctor who told to come in. He denies any nausea or vomiting no diarrhea no chest pain shortness of breath. Has not taken any medicine for this pain. He denies any hemoptysis or lower extremity edema. He's never had this abdominal pain before. No recent abdominal surgeries. Patient reports the pain is very mild 3 out of 10. (Ephraim Khan) Past History Travel History Traveled to [place] past 21 day No Medical History Any Pertinent Medical History? 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 FATHER FH: tuberculosis Relation not specified for: FH: breast cancer Hx Contributory? No (Ephraim Khan) Review of Systems Review of Systems Constitutional: Reports: chills. EENTM: Reports: no symptoms. Respiratory: Reports: no symptoms. Cardiovascular: Reports: no symptoms. GI: Reports: see HPI, abdominal pain. Genitourinary: Reports: no symptoms. Musculoskeletal: Reports: no symptoms. Skin: Reports: no symptoms. Neurological/Psychological: Reports: no symptoms. Hematologic/Endocrine: Reports: no symptoms. Immunologic/Allergic: Reports: no symptoms. All Other Systems: Reviewed and Negative (Ephraim Khan) Physical Exam Physical Exam General Appearance: well developed/nourished, no apparent distress, alert, awake , obese Head: atraumatic, normal appearance Eyes: Bilateral: normal appearance, PERRL, EOMI. Ears, Nose, Throat, Mouth: hearing grossly normal, moist mucous membrane, no tonsillar swelling or exudate Neck: normal inspection, supple, full range of motion Respiratory: normal breath sounds, chest non-tender, no respiratory distress, lungs clear Cardiovascular: regular rate/rhythm Gastrointestinal: normal bowel sounds, soft, no organomegaly, tenderness (LLQ, LEFT FLANK ) Back: normal inspection, normal range of motion, no vertebral tenderness Extremities: normal range of motion Neurologic/Psych: no motor/sensory deficits, awake, alert, oriented x 3, normal gait, normal mood/affect Skin: intact, normal color, warm/dry Core Measures ACS in differential dx? No Sepsis Present: No Sepsis Focused Exam Completed? No (Ephraim Khan) Progress Differential Diagnosis: AAA, bowel obstruction, colon cancer, diverticulitis, inflamm bowel dis, peptic ulcer, PUD/GERD, STD, ureterolithiasis, urinary retention, urethritis, UTI/pyelo Plan of Care: Orders Procedure Date/time Status URINALYSIS 01/10 1908 Complete LACTIC ACID 01/10 1908 Complete COMPREHENSIVE METABOLIC PANEL 01/10 1908 Complete CBC WITHOUT DIFFERENTIAL 01/10 1908 Complete Laboratory Tests 01/09/18 2208: Lactic Acid Cancelled 01/09/18 2138: Urine Color YEL, Urine Clarity CLEAR, Urine pH 6.0, Ur Specific [place] >= 1.030 , Urine Protein NEG, Urine Ketones NEG, Urine Nitrite NEG, Urine Bilirubin NEG, Urine Urobilinogen 0.2, Ur Leukocyte Esterase NEG, Ur Microscopic EXAM NOT REQUIRED, Urine Hemoglobin NEG, Urine Glucose NEG 01/09/18 1943: Anion Gap 10, Estimated GFR 57 L, BUN/Creatinine Ratio 17.7, Glucose 84, Lactic Acid 0.6 L, Calcium 9.9, Total Bilirubin 0.6, AST 20, ALT 30, Alkaline Phosphatase 59, Total Protein 7.5, Albumin 4.7, Globulin 2.8, Albumin/Globulin Ratio 1.7, CBC w Diff NO MAN DIFF REQ, RBC 4.87, MCV 83.2, MCH 27.3, MCHC 32.8 L, RDW 17.1 H, MPV 8.4, Gran % 57.1, Lymphocytes % 34.2, Monocytes % 5.4, Eosinophils % 2.9, Basophils % 0.4, Absolute Granulocytes 5.4, Absolute Lymphocytes 3.2, Absolute Monocytes 0.5, Absolute Eosinophils 0.3, Absolute Basophils 0 Patient is here for evaluation of abdominal pain cough congestion and hyperglycemia. Fingerstick here is 79. he does not use any insulin. Labs CT scan chest x-ray obtained. Blood sugar here is within normal limits labs are unchanged from previous patient does have some chronic kidney disease creatinine is at baseline. Urine is not showing any signs of infection chest x-ray CT scans are negative. Reassured patient and advised have his machine checked to ensure it is accurate. Advised him to use Tylenol for pain. No signs of bacterial infection on exam. Follow-up with primary care doctor patient agrees the plan Diagnostic Imaging: Viewed by Me: Radiology Read, CT Scan. Discussed w/RAD: Radiology Read, CT Scan. Radiology Impression: PATIENT: EDU MERCHANT PRESENT AGE: 57 PATIENT ACCOUNT NO: [id number] : 56 LOCATION: [facility] ORDERING PHYSICIAN: Ephraim ANTONIO SERVICE DATE: 01/09/18 EXAM TYPE: CAT - CT ABD & PELVIS W/O IV CONTRAS EXAMINATION: CT ABDOMEN AND PELVIS WITHOUT CONTRAST CLINICAL INFORMATION: Left lower quadrant pain. Diverticulitis. COMPARISON: CT scan abdomen pelvis 08/03/2016 TECHNIQUE: Multidetector volumetric imaging was performed from the superior aspect of the liver through the pubic symphysis. Sagittal and coronal reformatted images were obtained on the technologist's workstation. DLP: 1295.82 mGy-cm FINDINGS: LUNG BASES: The visualized lung bases are unremarkable. LIVER, GALLBLADDER, AND BILIARY TREE: The liver is normal in size, shape, and attenuation. No focal hepatic lesion or biliary ductal dilatation is present. Right lobe liver measures 17 cm superior inferior. Status post cholecystectomy. PANCREAS: Unremarkable. SPLEEN: Unremarkable. Spleen measures 10.5 cm superior inferior. ADRENAL GLANDS: Unremarkable. KIDNEYS AND URETERS: The kidneys are normal in size, shape, and attenuation. No hydronephrosis, hydroureter, or calculi seen. No perinephric stranding. BLADDER: Unremarkable. GASTROINTESTINAL TRACT: There is mild diverticulosis of left kidney and sigmoid with a few scattered diverticula in the right colon. There is no diverticulitis. There is no acute abnormality of the bowel. There is no bowel obstruction. There is no bowel wall thickening or edema. There is a moderate volume of scattered stool throughout the colon. The appendix is normal. The small bowel loops are normal. ABDOMINAL WALL: No significant hernia is appreciated. LYMPH NODES: Normal. VASCULAR: Unremarkable. PELVIC VISCERA: Unremarkable. OSSEOUS STRUCTURES: Unremarkable. IMPRESSION: No acute abnormality of the abdomen or the pelvis. There is diverticulosis of the colon but no diverticulitis. No acute abnormality of the bowel. DICTATED BY: Dontae Nguyen MD DATE/TIME DICTATED:01/09/182130 PHARMACY ANALYST:JUAN DATE/TIME TRANSCRIBED:01/09/182130 CONFIDENTIAL, DO NOT COPY WITHOUT APPROPRIATE AUTHORIZATION. <Electronically signed in Other Vendor System> , PATIENT: EDU MERCHANT PRESENT AGE: 57 PATIENT ACCOUNT NO: [id number] : 56 LOCATION: [facility] ORDERING PHYSICIAN: Ephraim ANTONIO SERVICE DATE: 01/09/18 EXAM TYPE: RAD - XRY- CHEST XRAY, TWO VIEWS EXAMINATION: XR CHEST CLINICAL INFORMATION: Cough, fever COMPARISON: Chest x-ray 08/03/2016. CT scan from the same day. TECHNIQUE: 2 views of the chest were obtained. FINDINGS: Lungs are clear. No focal consolidation or mass. Normal pulmonary vascularity. No pleural effusion or pneumothorax. Normal heart size. There are degenerative changes of the thoracic spine. IMPRESSION: No acute pulmonary disease. DICTATED BY: Octavio Sparrow MD DATE/TIME DICTATED:01/09/182137 PHARMACY ANALYST:JUAN DATE/TIME TRANSCRIBED:01/09/182137 CONFIDENTIAL, DO NOT COPY WITHOUT APPROPRIATE AUTHORIZATION. Initial ED EKG: none (Ephraim Khan) Departure Departure Disposition: HOME OR SELF CARE Condition: Stable Clinical Impression Primary Impression: Abdominal pain Qualifiers: Abdominal location: generalized Qualified Code: R10.84 - Generalized abdominal pain Referrals: Emilee Jordan MD (PCP/Family) Additional Instructions: YOUR sugars are within normal limits here he should have a machine rechecked. Use Tylenol for pain drink plenty of fluids use her albuterol inhaler for cough. Make a follow-up with your primary care doctor to review all results of today's visit monitor your symptoms return with any concerns. Please note that there might be incidental findings in your evaluation that are unrelated to the current emergency department visit. Please notify your primary care doctor about this emergency department visit in order to obtain and review all of the testing performed so that these incidental findings can be monitored as needed. If you had an x-ray performed, please understand that some fractures or other findings may not be seen on the initial set of x-rays. If your symptoms persist you might need a repeat set of x-rays to check for such a fracture. If you had a laceration evaluated, please understand that foreign bodies such as glass or wood may not be visible to the naked eye or on plain x-rays. If the wound becomes red, swollen, increasingly more painful or if there is any drainage from the wound, please have it reevaluated by a physician for the possibility of a retained foreign body. If you're unable to follow up as outlined in the discharge instructions please return to the emergency department. Thank you for choosing the [facility] Emergency Department for your care. It was a pleasure to serve you today. Departure Forms: Customer Survey General Discharge Information (Ephraim Khan) PA/HOSPITALIST PHYSICIAN Co-Sign Statement Statement: ED Attending supervision documentation- [] I saw and evaluated the patient. I have also reviewed all the pertinent lab results and diagnostic results. I agree with the findings and the plan of care as documented in the PA's/HOSPITALIST PHYSICIAN's documentation. [x] I have reviewed the ED Record and agree with the PA's/HOSPITALIST PHYSICIAN's documentation. [] Additions or exceptions (if any) to the PAs/HOSPITALIST PHYSICIAN's note and plan are summarized below: [] ([place],Orlando Oseguera)
== END ==
LOC: ERH 18:42
PROVIDERS: Physician Assistant Medical
DX: R10.32 Left lower quadrant pain (principal); E11.9 Type 2 diabetes mellitus without complications; E03.9 Hypothyroidism, unspecified; Z79.84 Long term (current) use of oral hypoglycemic drugs; Z79.82 Long term (current) use of aspirin
CPT/HCPCS: 71046; 74176; 81003